=== PATIENT | male | born 1975 | race Caucasian/White ===

== ENCOUNTER → 2018-12-23 | Outpatient (REF) | payer BC, OTHER ==
[2018-12-23 12:24] LABS: HEMATOCRIT 47.7 % (42.0-52.0); HEMOGLOBIN 15.8 g/dl (13.5-17.5); MEAN CORPUSCULAR HGB CONC 33.1 g/dl (32.0-36.5); MEAN CORPUSCULAR VOLUME 87.7 fl (80.0-96.0); PLATELET COUNT, AUTOMATED 301 10^3/uL (150-450); RED BLOOD COUNT 5.44 10^6/uL (4.30-6.10)
[2018-12-23 12:33] LABS: ALBUMIN 4.3 GM/DL (3.2-5.2); ALT/SGPT 38 U/L (12-78); BILIRUBIN,TOTAL 0.6 MG/DL (0.2-1.0); BLOOD UREA NITROGEN 16 MG/DL (7-18); CARBON DIOXIDE LEVEL 28 MEQ/L (21-32); CHLORIDE LEVEL 99 MEQ/L (98-107); CHOLESTEROL LEVEL 227 MG/DL (<200); CHOLESTEROL RISK RATIO 3.783 (<5); CREATININE FOR GFR 1.08 MG/DL (0.70-1.30); GLOMERULAR FILTRATION RATE > 60.0 (>60); GLUCOSE, FASTING 240 MG/DL (70-100); HDL CHOLESTEROL 60 MG/DL (>40); LDL CHOLESTEROL 116 MG/DL (<100); MAGNESIUM LEVEL 2.1 MG/DL (1.8-2.4); NON-HDL-C 167 MG/DL; POTASSIUM SERUM 4.4 MEQ/L (3.5-5.1); SODIUM LEVEL 136 MEQ/L (136-145); TOTAL PROTEIN 7.8 GM/DL (6.4-8.2); TRIGLYCERIDES LEVEL 253 MG/DL (<150)
[2018-12-23 14:03] LABS: HEMOGLOBIN A1c 8.5 %
== END ==
LOC: M LABDRAW1 09:06
PROVIDERS: ATTEND Internal Medicine
DX: Z00.00 Encounter for general adult medical examination without abnormal findings (principal); I10 Essential (primary) hypertension; E11.9 Type 2 diabetes mellitus without complications; E78.00 Pure hypercholesterolemia, unspecified

== ENCOUNTER 2019-01-26 08:49 | Emergency (ER) | payer OTHER ==
[~2019-01-26] VITALS: Ht 182.9 cm; Wt 117.6 kg
[2019-01-26] MEDS ORDERED: METF750T (08:59)
[2019-01-26] MEDS ORDERED: CHLO125TA (08:59)
[2019-01-26] MEDS ORDERED: LISI10TA4 (08:59)
[2019-01-26] MEDS ORDERED: TRUL10IN (08:59)
--- NOTE | 2019-01-26 09:35 | REP ---
CT Head without contrast HISTORY: Infarction COMPARISON: 04/04/2007 There is no intraparenchymal hemorrhage, acute infarct, mass or midline shift. The ventricular system is normal in appearance. There is no extra cerebral collection. There is no fracture. The visualized sinuses are clear. IMPRESSION: There is no intracranial lesion. Electronically Signed by Dash Colon MD 01/26/2019 09:28 A
[2019-01-26] MEDS ORDERED: MECLIZINE 25 MG TABLET PO ONE (09:45)
[2019-01-26 09:47] LABS: BASO # 0.1 10^3/uL (0.0-0.2); BASO % 0.8 % (0.0-1.0); EOS # 0.1 10^3/uL (0.0-0.50); HEMATOCRIT 44.2 % (42.0-52.0); LYMPH # 1.6 10^3/uL (1.5-4.5); LYMPH % 20.9 % (24.0-44.0); MEAN CORPUSCULAR HEMOGLOBIN 29.2 pg (27.0-33.0); MEAN CORPUSCULAR HGB CONC 33.9 g/dl (32.0-36.5); MONO # 0.6 10^3/uL (0.0-0.8); MONO % 8.2 % (0.0-5.0); NEUTROPHILS # 5.2 10^3/uL (1.8-7.7); NEUTROPHILS % 67.2 % (36.0-66.0); PLATELET COUNT, AUTOMATED 317 10^3/uL (150-450); RED BLOOD COUNT 5.14 10^6/uL (4.30-6.10); WHITE BLOOD COUNT 7.8 10^3/uL (4.0-10.0)
--- NOTE | 2019-01-26 09:49 | REP ---
Portable chest x-ray: Single view. History: CVA. Comparison study: December 13, 2005. Findings: EKG monitoring electrodes are seen. The lungs are well inflated and remain clear. Pleural angles are sharp. Heart size is normal. Pulmonary vasculature is not increased. No significant bony abnormality is seen. Impression: No active disease. Electronically Signed by Giovanni Chase MD 01/26/2019 11:31 A
[2019-01-26 09:58] LABS: INR 0.96; PROTHROMBIN TIME 12.9 SECONDS (12.1-14.4)
[2019-01-26 09:59] LABS: PARTIAL THROMBOPLASTIN TIME 32.6 SECONDS (25.4-37.6)
[2019-01-26 10:08] LABS: BLOOD UREA NITROGEN 17 MG/DL (7-18); CARBON DIOXIDE LEVEL 28 MEQ/L (21-32); CHLORIDE LEVEL 101 MEQ/L (98-107); CK-MB VALUE MASS < 1.0 NG/ML (<3.6); CPK CREATINE PHOSPHOKINASE 121 U/L (39-308); GLOMERULAR FILTRATION RATE > 60.0 (>60); GLUCOSE, FASTING 183 MG/DL (70-100); MB/CK RELATIVE INDEX 0.83 (< OR =4); POTASSIUM SERUM 3.5 MEQ/L (3.5-5.1); SODIUM LEVEL 137 MEQ/L (136-145); TROPONIN I < 0.02 NG/ML (< 0.10)
[2019-01-26 13:45] VITALS: BP 122/67
[2019-01-26] MEDS ORDERED: MECL-68 PO (13:45)
--- NOTE | 2019-01-26 19:54 | ECGEPIP ---
Stationary ECG Study [facility] - ED Test Date: 2019-01-26 Pat Name: JULIO CESAR STEPHENSON Department: Room: - Gender: M [employer] Mechanic: : 1975 Requested By: Maria Ines Hartman Order Number: [id number] Reading MD: Karl Odonnell Measurements Intervals [place] Rate: 101 P: 43 [place]: 126 QRS: -14 QRSD: 111 T: 1 QT: 367 QTc: 477 Interpretive Statements SINUS TACHYCARDIA LOW QRS VOLTAGE IN PRECORDIAL LEADS NSTTW ABNORMALITIES INCOMPLETE RIGHT BUNDLE BRANCH BLOCK SIMILAR TO 08/04/12 Electronically Signed On 01-26-2019 19:53:30 EDT by Karl Odonnell
--- NOTE | 2019-01-27 07:30 | REP ---
MR Brain without contrast HISTORY: Infarction COMPARISON : CT 01/26/2019 There are no areas of abnormal signal intensity in the brain. There is no intraparenchymal hemorrhage, infarct, mass or midline shift. The ventricular system is normal in appearance. There is no extra cerebral collection. The sinuses are clear. IMPRESSION: There is no intracranial lesion. Electronically Signed by Dash Colon MD 01/26/2019 12:51 P
== END 2019-01-26 14:00 | disposition home or self-care (01) ==
LOC: M ED 08:49
DX: H81.01 Meniere's disease, right ear (principal); H81.49 Vertigo of central origin, unspecified ear; R00.0 Tachycardia, unspecified; I45.19 Other right bundle-branch block; E11.9 Type 2 diabetes mellitus without complications; I10 Essential (primary) hypertension; Z79.84 Long term (current) use of oral hypoglycemic drugs; Z79.899 Other long term (current) drug therapy

== ENCOUNTER → 2019-11-11 | Outpatient (REF) | payer OTHER ==
[~2019-11-11] MED LIST: CHLO125TA; LISI10TA4; MECL1TAB31 PO; METF750T36; TRUL10IN
[2019-11-11 13:10] LABS: ALBUMIN 4.4 GM/DL (3.2-5.2); ALT/SGPT 37 U/L (12-78); BILIRUBIN,TOTAL 0.5 MG/DL (0.2-1.0); BLOOD UREA NITROGEN 22 MG/DL (7-18); CALCIUM LEVEL 9.1 MG/DL (8.5-10.1); CARBON DIOXIDE LEVEL 26 MEQ/L (21-32); CHLORIDE LEVEL 103 MEQ/L (98-107); CHOLESTEROL LEVEL 208 MG/DL (<200); CHOLESTEROL RISK RATIO 4.521 (<5); CREATININE FOR GFR 1.15 MG/DL (0.70-1.30); GLOMERULAR FILTRATION RATE > 60.0 (>60); GLUCOSE, FASTING 125 MG/DL (70-100); HDL CHOLESTEROL 46 MG/DL (>40); LDL CHOLESTEROL 85 MG/DL (<100); MAGNESIUM LEVEL 1.9 MG/DL (1.8-2.4); NON-HDL-C 162 MG/DL; SODIUM LEVEL 139 MEQ/L (136-145); TOTAL PROTEIN 7.6 GM/DL (6.4-8.2); TRIGLYCERIDES LEVEL 385 MG/DL (<150)
[2019-11-11 13:34] LABS: MALB URINE SIEMENS 6.8 MG/L; MAU/CREAT RATIO 6.4 MCG/MG (0.0-30.0)
[2019-11-11 13:41] LABS: HEMOGLOBIN A1c 6.3 %
== END ==
LOC: M LABDRAW1 11:56
PROVIDERS: ATTEND Internal Medicine
DX: I10 Essential (primary) hypertension (principal); E78.00 Pure hypercholesterolemia, unspecified; E11.9 Type 2 diabetes mellitus without complications

== ENCOUNTER → 2020-05-23 | Outpatient (REF) | payer BC ==
[2020-05-23 13:11] LABS: HEMOGLOBIN 16.1 g/dl (13.5-17.5); MEAN CORPUSCULAR HEMOGLOBIN 29.2 pg (27.0-33.0); MEAN CORPUSCULAR HGB CONC 32.9 g/dl (32.0-36.5); MEAN CORPUSCULAR VOLUME 88.8 fl (80.0-96.0); PLATELET COUNT, AUTOMATED 265 10^3/uL (150-450); RED BLOOD COUNT 5.52 10^6/uL (4.30-6.10); WHITE BLOOD COUNT 6.7 10^3/uL (4.0-10.0)
[2020-05-23 13:23] LABS: ALBUMIN 4.3 GM/DL (3.2-5.2); ALT/SGPT 34 U/L (12-78); BILIRUBIN,TOTAL 0.7 MG/DL (0.2-1.0); BLOOD UREA NITROGEN 17 MG/DL (7-18); CALCIUM LEVEL 9.1 MG/DL (8.5-10.1); CARBON DIOXIDE LEVEL 26 MEQ/L (21-32); CHLORIDE LEVEL 105 MEQ/L (98-107); CHOLESTEROL LEVEL 136 MG/DL (<200); CHOLESTEROL RISK RATIO 2.956 (<5); CREATININE FOR GFR 1.09 MG/DL (0.70-1.30); GLOMERULAR FILTRATION RATE > 60.0 (>60); GLUCOSE, FASTING 152 MG/DL (70-100); HDL CHOLESTEROL 46 MG/DL (>40); LDL CHOLESTEROL 45 MG/DL (<100); MAGNESIUM LEVEL 2.1 MG/DL (1.8-2.4); NON-HDL-C 90 MG/DL; POTASSIUM SERUM 4.3 MEQ/L (3.5-5.1); SODIUM LEVEL 139 MEQ/L (136-145); TOTAL PROTEIN 7.6 GM/DL (6.4-8.2); TRIGLYCERIDES LEVEL 227 MG/DL (<150)
[2020-05-23 13:24] LABS: HEMOGLOBIN A1c 6.3 %
== END ==
LOC: M SFHCPLAZ 08:12
PROVIDERS: ATTEND Internal Medicine
DX: H81.02 Meniere's disease, left ear (principal); I10 Essential (primary) hypertension; E11.9 Type 2 diabetes mellitus without complications; E78.00 Pure hypercholesterolemia, unspecified

== ENCOUNTER → 2020-08-16 | Outpatient (REF) | LOC: M LAB 11:45 | PROVIDERS: ATTEND Nurse Practitioner Adult Health | DX: Z02.89 Encounter for other administrative examinations (principal) ==

== ENCOUNTER → 2020-10-25 | Outpatient (REF) | payer SELFPAY ==
[~2020-10-25] MED LIST changes: +ALCOPAD25 TOP; +AMLO2.5T3 PO; +ATOR1TAB21 PO; +AUGM875T28 PO; +CIAL5TAB PO; +INSU1MIS20 SC; +INSUDET SC; +LISI10TA22; +LISI10TA22 PO; -LISI10TA4; +MECL-86 PO; +METF750T36 PO; +PRED10TA2 PO; +TRUL10IN SC
== END ==
LOC: M LABSMTC 11:19 → EDSTATUS 12:00
PROVIDERS: ATTEND Pediatrics
DX: Z20.828 Contact with and (suspected) exposure to other viral communicable diseases (principal)

== ENCOUNTER 2020-11-01 05:34 | Inpatient (IN) | payer BC ==
[~2020-11-01] VITALS: Ht 182.9 cm; Wt 118.0 kg
[~2020-11-01 05:34] MED LIST changes: -ALCOPAD25 TOP; -AMLO2.5T3 PO; -ATOR1TAB21 PO; -AUGM875T28 PO; -CIAL5TAB PO; -INSU1MIS20 SC; -INSUDET SC; -LISI10TA22; -LISI10TA22 PO; +LISI10TA4; -MECL-86 PO; -METF750T36 PO; -PRED10TA2 PO; -TRUL10IN SC
[2020-11-01] MEDS ORDERED: ONDANSETRON 4MG/2ML VIAL IV ONE (06:30)
[2020-11-01] MEDS ORDERED: MECLIZINE 25 MG TABLET PO ONE (06:30)
[2020-11-01] MEDS ORDERED: ACETAMINOPHEN 500 MG TAB PO ONE (07:00)
[2020-11-01] MEDS ORDERED: LISI10TA4 PO (07:00)
[2020-11-01] MEDS ORDERED: CIAL5TAB PO (07:00)
[2020-11-01] MEDS ORDERED: METF750T36 PO (07:00)
[2020-11-01] MEDS ORDERED: ATOR1TAB21 PO (07:00)
[2020-11-01] MEDS ORDERED: TRUL10IN SC (07:00)
[2020-11-01 07:16] LABS: BASO % 0.2 % (0.0-1.0); HEMATOCRIT 43.5 % (42.0-52.0); HEMOGLOBIN 14.7 g/dl (13.5-17.5); LYMPH # 0.6 10^3/uL (1.5-5.0); LYMPH % 5.4 % (24.0-44.0); MEAN CORPUSCULAR HEMOGLOBIN 28.3 pg (27.0-33.0); MEAN CORPUSCULAR HGB CONC 33.8 g/dl (32.0-36.5); MEAN CORPUSCULAR VOLUME 83.8 fl (80.0-96.0); MONO # 0.4 10^3/uL (0.0-0.8); MONO % 3.6 % (0.0-5.0); NEUTROPHILS # 9.1 10^3/uL (1.5-8.5); NEUTROPHILS % 89.7 % (36.0-66.0); PLATELET COUNT, AUTOMATED 286 10^3/uL (150-450); RED BLOOD COUNT 5.19 10^6/uL (4.30-6.10); VENOUS BASE EXCESS -0.9 (-2.0-2.0); VENOUS HCO3 23.5 MEQ/L (23.0-27.0); VENOUS O2 SATURATION 57.6 % (60.0-80.0); VENOUS PARTIAL PRESSURE CO2 38.6 mmHg (38.0-50.0); VENOUS PARTIAL PRESSURE O2 28.3 mmHg (30.0-50.0); VENOUS PH 7.403 UNITS (7.330-7.430); VENOUS STANDARD HCO3 22.7 MEQ/L; VENOUS TOTAL CO2 24.7 MEQ/L (24.0-28.0); WHITE BLOOD COUNT 10.1 10^3/uL (4.0-10.0)
[2020-11-01 07:31] LABS: INR 1.04; PROTHROMBIN TIME 13.8 SECONDS (12.5-14.3)
[2020-11-01 07:34] LABS: D-DIMER QUANT 1421.33 ng/ml (<500)
[2020-11-01 07:48] LABS: ALBUMIN 3.2 GM/DL (3.2-5.2); ALT/SGPT 53 U/L (12-78); BILIRUBIN,DIRECT 0.4 MG/DL (0.0-0.2); BLOOD UREA NITROGEN 13 MG/DL (7-18); CALCIUM LEVEL 8.3 MG/DL (8.5-10.1); CARBON DIOXIDE LEVEL 24 MEQ/L (21-32); CHLORIDE LEVEL 95 MEQ/L (98-107); CK-MB VALUE MASS < 1.0 NG/ML (<3.6); CPK CREATINE PHOSPHOKINASE 469 U/L (39-308); CREATININE FOR GFR 1.22 MG/DL (0.70-1.30); FERRITIN 1526 NG/ML (26-388); GLOMERULAR FILTRATION RATE > 60.0 (>60); GLUCOSE, FASTING 295 MG/DL (70-100); LDH LACTATE DEHYDROGENASE 497 U/L (87-241); MB/CK RELATIVE INDEX 0.21 (< OR =4); NT-PRO BNP 69 PG/ML (<125); POTASSIUM SERUM 3.5 MEQ/L (3.5-5.1); SODIUM LEVEL 130 MEQ/L (136-145); TOTAL PROTEIN 7.5 GM/DL (6.4-8.2); TROPONIN I < 0.02 NG/ML (< 0.10)
[2020-11-01] MEDS ORDERED: ISOVUE-370 76% 100ML VIAL As Ordered ONE (08:23)
--- NOTE | 2020-11-01 08:36 | REP ---
INDICATION: DYSPNEA/COUGH COMPARISON: 01/26/2019 TECHNIQUE: Portable AP view of the chest FINDINGS: Evaluation limited by portable technique, underpenetration and poor inspiratory effort. The cardiac silhouette is grossly normal/stable. The lung vega demonstrate new areas opacity in the right midlung zone and possible opacity in the retrocardiac left lower lobe. No obvious effusion. No pneumothorax. Skeletal structures intact. IMPRESSION: Opacities suggesting multifocal pneumonia. <Electronically signed by Esteban Cueva > 11/01/20 0825
--- NOTE | 2020-11-01 08:57 | REP ---
INDICATION: sob, lea, +covid, elevated dimer, r/o PE COMPARISON: None. TECHNIQUE: Axial contrast enhanced images from the thoracic inlet to the upper abdomen using pulmonary embolus technique with multiplanar re-formations. 100 ml Isovue 370 intravenous contrast material administered without complication. This CT examination was performed using the following dose reduction techniques: Automated exposure control, adjustment of mA and/or kv according to the patient's size, and use of iterative reconstruction technique. FINDINGS: Satisfactory enhancement of the pulmonary vasculature is achieved and no filling defects are identified to suggest pulmonary embolus. Diffuse bilateral primarily peripheral and lower lobe consolidations consistent with multifocal pneumonia and COVID-19 pulmonary disease. No effusion. No pneumothorax. Tracheobronchial tree is patent. Mediastinum demonstrates mild reactive adenopathy. Thoracic aorta is without aneurysm or dissection. Heart and pericardium are normal. Thyroid gland is normal. Surrounding musculoskeletal structures are intact. IMPRESSION: 1. Significant bilateral pulmonary consolidations consistent with COVID-19 pulmonary disease 2. No evidence for pulmonary embolus. <Electronically signed by Esteban Cueva > 11/01/20 [id number]
--- NOTE | 2020-11-01 08:59 | REP ---
INDICATION: sob, lea, +covid, elevated dimer, r/o PE COMPARISON: None TECHNIQUE: Axial noncontrast images from the lung bases to the pubic symphysis with coronal and sagittal reformations. This CT examination was performed using the following dose reduction techniques: Automated exposure control, adjustment of mA and/or kv according to the patient's size, and use of iterative reconstruction technique. FINDINGS: Diffuse fatty infiltration to the liver noted along with mild hepatosplenomegaly. No focal hepatic or splenic lesions are identified. Gallbladder, pancreas, bilateral adrenal glands and kidneys are normal. The enteric system is without obstruction or acute inflammatory process. Normal terminal ileum and appendix are identified in the right lower quadrant. Pelvis demonstrates normal bladder and age-appropriate prostate/seminal vesicles. Small fat containing inguinal hernias noted. No ascites. No free air. No adenopathy. Abdominal aorta and vasculature appear normal. Musculoskeletal structures are intact. IMPRESSION: 1. Hepatosplenomegaly along with hepatosteatosis. No focal hepatic or splenic lesions identified. 2. No acute abdominopelvic pathology appreciated. <Electronically signed by Esteban Cueva > 11/01/20 [id number]
[2020-11-01] MEDS ORDERED: GLUCOSE 4GM CHEW TABLET PO PRN (09:45)
[2020-11-01] MEDS ORDERED: ACETAMINOPHEN TAB 650MG DOSE (2X325MG) PO PRN (09:45)
[2020-11-01] MEDS ORDERED: DEXTROSE 50% 50 ML SYRINGE IV PRN (09:45)
[2020-11-01] MEDS ORDERED: GLUCAGON INJ 1MG VIAL SC PRN (09:45)
[2020-11-01] MEDS ORDERED: MECLIZINE 25 MG TABLET PO PRN (09:45)
[2020-11-01] MEDS: LEVEMIR (INSULIN DETEMIR) 1 UNITS/0.01ML SC SCH ×2 (10:00→20:26)
[2020-11-01 11:47] LABS: THYROID STIMULATING HORMONE 1.92 uIU/ML (0.358-3.740)
[2020-11-01 11:49] LABS: CORTISOL BASELINE 31.2 UG/DL (4.3-22.4); TRIGLYCERIDES LEVEL 117 MG/DL (<150)
[2020-11-01 12:00] VITALS: BP 132/63
[2020-11-01] MEDS: HumaLOG INSULIN (NovoLOG) PER UNIT SC SCH ×3 (12:00→20:38)
[2020-11-01 12:05] LABS: HEPATITIS B SURFACE ANTIGEN NEGATIVE (NEGATIVE)
[2020-11-01 12:28] VITALS: O2SAT 94
[2020-11-01 12:33] LABS: HIV 1&2 SCREEN CENTAUR NEGATIVE (NEGATIVE)
[2020-11-01] MEDS: ENOXAPARIN 60MG/0.6ML SYRINGE (J1650 PER 10MG) SC SCH ×2 (14:32→20:26)
[2020-11-01] MEDS: dexameTHASONE 4 MG/ML 1ML VIAL (J1100 PER 1MG) IV SCH (14:32)
[2020-11-01] MEDS: ATORVASTATIN 20 MG TAB PO SCH (14:32)
[2020-11-01 16:00] VITALS: BP 143/73
--- NOTE | 2020-11-01 16:00 | HPEPDOC ---
[facility] Medical History & Physical Date of Admission Nov 01, 2020 Date of Service: Nov 01, 2020 History and Physical Chief complaint: Presented to the hospital with complaints of worsening shortness of breath with exertion History of present illness: Patient is a 45-year-old male who presented to the emergency room with worsening shortness of breath on exertion. 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 He noted he was expressing symptoms since 10/22 and tested positive for COVID19 on 10/25. Patient denies any significant cough, reports a very mild nonproductive cough. Denies any chest pain or palpitations. Patient reports feeling body aches diffusely and chills while at home. Patient did note a fever several days ago of 101F. Patient denies any abdominal pain, has experience some diarrhea this morning patient awoke with nausea and had a single episode of vomiting that he attributed to his vertigo episode. Patient reports a decrease in his appetite and has experience a weight loss of approximately 18 pounds over the duration of 1 week. Past Medical History: Mnires disease Hypertension DLP NIDDM2 Past Surgical History: Polyps removed from his nose Allergies: See below Medications: See below Family History: - Mother with history of breast cancer, - Father alive Social History: - Denies the use of alcohol, tobacco or illicit drugs - Denies recent travel or sick contacts - Lives with - Occupation; patient works at the hospital as a sitter Review of Systems: 10 point review of systems complete, all negative otherwise stated in HPI Physical exam: - Vitals: BP [146/72], HR [102], RR [20], Sat [94%NC4L], Temp [98.0F] - General: Lying in bed, Speaking in full sentences, AAOx3 - HEENT: NC, AT, PERRLA, EOMI - CVS: Mild tachycardia, +S1S2 - Lungs: Fair air entry bilaterally, No appreciable wheezing / rales / rhonchi - Abdomen: Soft, Non-distended, Non-tender - Extremities: No lower extremity edema, No calf tenderness - Neuro: No focal motor or sensory deficit - Skin: No visible rashes Labs: See below Imaging: CXR 11/01: Opacities suggesting multifocal pneumonia. CTA Chest 11/01: 1. Significant bilateral pulmonary consolidations consistent with COVID-19 pulmonary disease 2. No evidence for pulmonary embolus. CT abdomen / pelvis w/ IV contrast 11/01: 1. Hepatosplenomegaly along with hepatosteatosis. No focal hepatic or splenic lesions identified. 2. No acute abdominopelvic pathology appreciated. EKG: See below Assessment and Plan: Acute hypoxic respiratory failure - likely 2/2 COVID pneumonia - Presented to the ER with complaints of SOB and non-productive cough - Currently patient is requiring 4 L of nasal cannula oxygen - Inflammatory markers are elevated - Imaging reviewed - Will start patient on Dexamethasone (Day #1) - Will start incentive spirometry / acapella Leukocytosis - Patient remains hemodynamically stable and afebrile - Pro-calcitonin noted; will follow trend - No lactic acidosis - Imaging noted possibility of pneumonia and COVID19 - Will start Zosyn (Day #1) Hyponatremia - likely 2/2 hypotonic euvolemic etiology - possibly 2/2 SIADH - Will check urine / serum osmolality, urine electrolytes, thyroid function, cortisol - Will hold Lisinopril for now - Will hold IV fluids at this time Mild elevation of AST - Imaging noted above with hepatosplenomegaly along with hepatosteatosis - Will continue to follow trend Mnires disease - Patient reported an episode of Vertigo this morning - Resolved with Meclizine in the ER - Will c/w Meclizine PRN Hypertension - BP well controlled - Will resume Lisinopril within 24 hours DLP - c/w Atorvastatin NIDDM2 - Will start ISS and low dose Levemir BID DVT prophylaxis - Will start weight based Lovenox Vital Signs Vital Signs Date Time Temp Pulse Resp B/P (MAP) Pulse Ox O2 Delivery O2 Flow Rate FiO2 11/01/20 12:28 94 Nasal Cannula 4.0 11/01/20 12:00 98.0 101 20 132/63 (86) Laboratory Data Labs 24H Laboratory Tests 2 11/01/20 06:44: Immature Granulocyte % (Auto) 1.1, Neutrophils (%) (Auto) 89.7H, Lymphocytes (%) (Auto) 5.4L, Monocytes (%) (Auto) 3.6, Eosinophils (%) (Auto) 0.0, Basophils (%) (Auto) 0.2, Neutrophils # (Auto) 9.1H, Lymphocytes # (Auto) 0.6L, Monocytes # (Auto) 0.4, Eosinophils # (Auto) 0.0, Basophils # (Auto) 0.0, Nucleated Red Blood Cells % (auto) 0.0, Prothrombin Time 13.8, Prothromb Time International Ratio 1.04, D-Dimer, Quantitative 1421.33H, Blood Gas Bicarbonate Standard 22.7, Venous Blood pH 7.403, Venous Blood Partial Pressure CO2 38.6, Venous Blood Partial Pressure O2 28.3L, Venous Blood Total Carbon Dioxide 24.7, Venous Blood HCO3 23.5, Venous Blood Oxygen Saturation 57.6L, Venous Blood Base Excess -0.9, Anion Gap 11, Glomerular Filtration Rate > 60.0, Lactic Acid Level 1.8, Calcium Level 8.3L, Ferritin 1526H, Total Bilirubin 1.0, Direct Bilirubin 0.4H, Aspartate Amino Transf (AST/SGOT) 66H, Alanine Aminotransferase (ALT/SGPT) 53, Alkaline Phosphatase 94, Lactate Dehydrogenase 497H, Total Creatine Kinase 469H, Creatine Kinase MB < 1.0, Creatine Kinase MB Relative Index 0.21, Troponin I < 0.02, ZP-Pox-Z-Type Natriuretic Peptide 69, Total Protein 7.5, Albumin 3.2, Albumin/Globulin Ratio 0.7, Procalcitonin 1.05 11/01/20 10:47: Fibrinogen 1130H, Osmolality 283, C-Reactive Protein, Quantitative 22.60H, Triglycerides Level 117, Thyroid Stimulating Hormone (TSH) 1.920, Cortisol Baseline 31.2H, Hepatitis B Surface Antigen NEGATIVE, HIV Antigen/Antibody Combo Qual NEGATIVE CBC/BMP Laboratory Tests 11/01/20 06:44 Microbiology Microbiology 11/01/20 Blood Culture, Received Pending 11/01/20 Blood Culture, Received Pending Home Medications Scheduled Atorvastatin Calcium (Atorvastatin Calcium) 20 Mg Tablet, 20 MG PO DAILY Dulaglutide (Trulicity) 0.75 Mg/0.5 Ml Pen.injctr, 0.75 MG SC QWEEK WEDNESDAYS Lisinopril (Lisinopril) 10 Mg Tablet, 10 MG PO DAILY Metformin HCl (Metformin HCl ER) 750 Mg Tab.er.24h, 1,500 MG PO QPM TAKES AROUND DINNERTIME Scheduled PRN Tadalafil (Cialis) 5 Mg Tablet, 5 MG PO DAILY PRN for DIZZINESS FOR MENIERE'S DISEASE Allergies Coded Allergies: No Known Allergies (Unverified , 01/26/19) RENETTA PRETTY MD Nov 01, 2020 16:00
[2020-11-01] MEDS: PIPERACILLIN/TAZOBACTAM SOD 3.375 GM in D5W MINI-BAG PLUS 50 ML IV SCH ×2 (17:30→23:53)
[2020-11-01 20:00] VITALS: BP 119/63; O2SAT 91
[2020-11-01] MEDS: NS 1,000 ML IV SCH (20:26)
[2020-11-02] VITALS (7 sets, daily range): BP systolic 111–130; BP diastolic 57–76; O2SAT 92–94
[2020-11-02] MEDS: PIPERACILLIN/TAZOBACTAM SOD 3.375 GM in D5W MINI-BAG PLUS 50 ML IV SCH ×4 (04:35→23:38)
[2020-11-02 07:06] LABS: HEMATOCRIT 40.7 % (42.0-52.0); HEMOGLOBIN 13.6 g/dl (13.5-17.5); MEAN CORPUSCULAR HEMOGLOBIN 28.2 pg (27.0-33.0); MEAN CORPUSCULAR HGB CONC 33.4 g/dl (32.0-36.5); MEAN CORPUSCULAR VOLUME 84.4 fl (80.0-96.0); PLATELET COUNT, AUTOMATED 339 10^3/uL (150-450); RED BLOOD COUNT 4.82 10^6/uL (4.30-6.10); WHITE BLOOD COUNT 7.6 10^3/uL (4.0-10.0)
[2020-11-02 07:31] LABS: INR 0.97; PROTHROMBIN TIME 13.1 SECONDS (12.5-14.3)
[2020-11-02 07:32] LABS: PARTIAL THROMBOPLASTIN TIME 38.8 SECONDS (24.2-38.5)
[2020-11-02 07:45] LABS: ALBUMIN 2.8 GM/DL (3.2-5.2); ALT/SGPT 53 U/L (12-78); BILIRUBIN,DIRECT 0.3 MG/DL (0.0-0.2); BILIRUBIN,TOTAL 0.7 MG/DL (0.2-1.0); BLOOD UREA NITROGEN 17 MG/DL (7-18); CARBON DIOXIDE LEVEL 24 MEQ/L (21-32); CHLORIDE LEVEL 99 MEQ/L (98-107); CREATININE FOR GFR 1.16 MG/DL (0.70-1.30); FERRITIN 1549 NG/ML (26-388); GLOMERULAR FILTRATION RATE > 60.0 (>60); GLUCOSE, FASTING 330 MG/DL (70-100); MAGNESIUM LEVEL 2.6 MG/DL (1.8-2.4); POTASSIUM SERUM 3.6 MEQ/L (3.5-5.1); SODIUM LEVEL 132 MEQ/L (136-145); TOTAL PROTEIN 6.6 GM/DL (6.4-8.2)
[2020-11-02 08:01] LABS: ATYPICAL LYMPH 2 % (0-5); LYMPHOCYTES 9 % (16-44); MONOCYTES 8 % (0-5); NEUTROPHILS 81 % (28-66); PLATELET ESTIMATE NORMAL (NORMAL)
[2020-11-02] MEDS ORDERED: lisinopriL 10 MG TAB PO SCH (09:00)
[2020-11-02] MEDS: NS 1,000 ML IV SCH (10:09)
[2020-11-02] MEDS: dexameTHASONE 4 MG/ML 1ML VIAL (J1100 PER 1MG) IV SCH (10:10)
[2020-11-02] MEDS: ENOXAPARIN 60MG/0.6ML SYRINGE (J1650 PER 10MG) SC SCH ×2 (10:10→21:26)
[2020-11-02] MEDS: HumaLOG INSULIN (NovoLOG) PER UNIT SC SCH ×4 (10:10→21:28)
[2020-11-02] MEDS: ATORVASTATIN 20 MG TAB PO SCH (10:11)
[2020-11-02] MEDS: LEVEMIR (INSULIN DETEMIR) 1 UNITS/0.01ML SC SCH ×2 (10:11→21:27)
--- NOTE | 2020-11-02 13:27 | ECGEPIP ---
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
--- NOTE | 2020-11-02 13:59 | IPNPDOC ---
Text Note Date of Service The patient was seen on 11/02/20. NOTE Subjective: Patient is a 45-year-old male who presented to the ER with worsening shortness of breath on exertion. 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 He noted he was expressing symptoms since 10/22 and tested positive for COVID19 on 10/25. Patient was admitted to the hospital service for further evaluation and treatment. Patient was seen and examined at the bedside. Objective: Vitals (See below) General: Lying in bed, appears to be comfortable, AAOx3 HEENT: NC, AT CVS: +S1S2 Lungs: Fair air entry b/l, no appreciable wheezing, rhonchi or rales Abdomen: Soft, ND, NT Extremities: No evidence of edema, - Calf tenderness Imaging: CXR 11/01: Opacities suggesting multifocal pneumonia. CTA Chest 11/01: 1. Significant bilateral pulmonary consolidations consistent with COVID-19 pulmonary disease 2. No evidence for pulmonary embolus. CT abdomen / pelvis w/ IV contrast 11/01: 1. Hepatosplenomegaly along with hepatosteatosis. No focal hepatic or splenic lesions identified. 2. No acute abdominopelvic pathology appreciated. Assessment and plan: Acute hypoxic respiratory failure - likely 2/2 COVID pneumonia and possible superimposed bacterial pneumonia - Presented to the ER with complaints of SOB and non-productive cough - Currently patient is requiring 4 L of nasal cannula oxygen - Inflammatory markers are elevated - PCT elevated - Imaging reviewed - c/w Dexamethasone (Day #2) - c/w Zosyn (Day #2) - c/w incentive spirometry / acapella Leukocytosis - Patient remains hemodynamically stable and afebrile - Pro-calcitonin noted; will follow trend - No lactic acidosis - Imaging noted possibility of pneumonia and COVID19 - See above Hyponatremia - likely 2/2 hypotonic hypovolemic etiology 2/2 diarrhea; possibly 2/2 hypotonic euvolemic etiology - possibly 2/2 SIADH - improving with fluids - Thyroid function / Cortisol noted - Urine osmolality / urine electrolytes - Will continue to hold Lisinopril - c/w gentle IV fluids at this time Mild elevation of AST - Imaging noted above with hepatosplenomegaly along with hepatosteatosis - Improving / Stable Mnires disease - Reported an episode of Vertigo on 11/01 AM - No further episodes since arrival to ER - c/w Meclizine PRN Hypertension - BP well controlled - Will resume Lisinopril within 24-48 hours DLP - c/w Atorvastatin NIDDM2 - c/w ISS - Will increase dose Levemir BID DVT prophylaxis - c/w weight based Lovenox VS,Fishbone, I+O VS, Fishbone, I+O Laboratory Tests 11/02/20 06:37 Vital Signs Date Time Temp Pulse Resp B/P (MAP) Pulse Ox O2 Delivery O2 Flow Rate FiO2 11/02/20 12:00 96.9 98 20 114/59 (77) 93 Nasal Cannula 3.0 I&O- Last 24 Hours up to 6 AM 11/02/20 06:00 Intake Total 1260 ml Output Total 500 ml Balance 760 ml RENETTA PRETTY MD Nov 02, 2020 13:59
[2020-11-02 14:40] LABS: APPEARANCE, URINE CLEAR (CLEAR); BACTERIA, URINE AUTO NEGATIVE (NEGATIVE); BILIRUBIN, URINE AUTO NEGATIVE (NEGATIVE); BLOOD, URINE BLOOD 2+ (NEGATIVE); COLOR, URINE YELLOW (YELLOW); GLUCOSE, URINE (UA) AUTO 3+ mg/dL (NEGATIVE); KETONE, URINE AUTO TRACE mg/dL (NEGATIVE); LEUKOCYTE ESTERASE, URINE AUTO NEGATIVE (NEGATIVE); NITRITE, URINE AUTO NEGATIVE (NEGATIVE); PROTEIN, URINE AUTO 1+ mg/dL (NEGATIVE); RBC, URINE AUTO 0 /HPF (0-3); SPECIFIC GRAVITY URINE AUTO 1.017 (1.002-1.035); SQUAMOUS EPITHELIAL CELL UR AU 0 /HPF (0-6); UROBILINOGEN, URINE AUTO 0.2 mg/dL (0.0-2.0); WBC, URINE AUTO 2 /HPF (0-3)
[2020-11-02 14:57] LABS: CREATININE,RANDOM URINE 80.6 MG/DL
[2020-11-03] VITALS (7 sets, daily range): BP systolic 125–137; BP diastolic 71–85; O2SAT 91
[2020-11-03] MEDS: PIPERACILLIN/TAZOBACTAM SOD 3.375 GM in D5W MINI-BAG PLUS 50 ML IV SCH ×4 (04:54→23:35)
[2020-11-03 08:08] LABS: HEMATOCRIT 40.8 % (42.0-52.0); HEMOGLOBIN 13.2 g/dl (13.5-17.5); MEAN CORPUSCULAR HEMOGLOBIN 27.2 pg (27.0-33.0); MEAN CORPUSCULAR HGB CONC 32.4 g/dl (32.0-36.5); MEAN CORPUSCULAR VOLUME 84.1 fl (80.0-96.0); PLATELET COUNT, AUTOMATED 410 10^3/uL (150-450); RED BLOOD COUNT 4.85 10^6/uL (4.30-6.10); WHITE BLOOD COUNT 7.1 10^3/uL (4.0-10.0)
[2020-11-03 08:21] LABS: INR 0.99; PROTHROMBIN TIME 13.3 SECONDS (12.5-14.3)
[2020-11-03 08:22] LABS: PARTIAL THROMBOPLASTIN TIME 37.7 SECONDS (24.2-38.5)
[2020-11-03] MEDS: dexameTHASONE 4 MG/ML 1ML VIAL (J1100 PER 1MG) IV SCH (08:24)
[2020-11-03] MEDS: ATORVASTATIN 20 MG TAB PO SCH (08:24)
[2020-11-03] MEDS: ENOXAPARIN 60MG/0.6ML SYRINGE (J1650 PER 10MG) SC SCH ×2 (08:25→20:17)
[2020-11-03] MEDS: LEVEMIR (INSULIN DETEMIR) 1 UNITS/0.01ML SC SCH ×2 (08:25→20:17)
[2020-11-03] MEDS: HumaLOG INSULIN (NovoLOG) PER UNIT SC SCH ×4 (08:26→20:18)
[2020-11-03 08:36] LABS: ALBUMIN 2.8 GM/DL (3.2-5.2); ALT/SGPT 74 U/L (12-78); BILIRUBIN,DIRECT 0.3 MG/DL (0.0-0.2); BILIRUBIN,TOTAL 0.7 MG/DL (0.2-1.0); BLOOD UREA NITROGEN 24 MG/DL (7-18); C REACTIVE PROTEIN QUANTITATIV 9.63 MG/DL (0.00-0.30); CARBON DIOXIDE LEVEL 24 MEQ/L (21-32); CHLORIDE LEVEL 102 MEQ/L (98-107); CREATININE FOR GFR 1.13 MG/DL (0.70-1.30); FERRITIN 1775 NG/ML (26-388); GLOMERULAR FILTRATION RATE > 60.0 (>60); GLUCOSE, FASTING 351 MG/DL (70-100); MAGNESIUM LEVEL 2.5 MG/DL (1.8-2.4); POTASSIUM SERUM 3.8 MEQ/L (3.5-5.1); SODIUM LEVEL 134 MEQ/L (136-145); TOTAL PROTEIN 6.6 GM/DL (6.4-8.2)
[2020-11-03 08:50] LABS: D-DIMER QUANT 859.48 ng/ml (<500)
[2020-11-03 09:29] LABS: ANISOCYTOSIS 1+; ATYPICAL LYMPH 4 % (0-5); LYMPHOCYTES 9 % (16-44); METAMYELOCYTES 1 % (0-0); MICROCYTOSIS 1+; MONOCYTES 6 % (0-5); MYELOCYTES 2 % (0-0); NEUTROPHILS 76 % (28-66); PLATELET ESTIMATE NORMAL (NORMAL)
--- NOTE | 2020-11-03 11:24 | IPNPDOC ---
Text Note Date of Service The patient was seen on 11/03/20. NOTE Subjective: Patient is a 45-year-old male who presented to the ER with worsening shortness of breath on exertion. 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 Patient was admitted to the hospital service for further evaluation and treatment. Patient was seen and examined at the bedside. Patient was sitting up at the edge of the bed. Denies any chest pain or palpitations. Patient reports that he does experience some shortness of breath when he exerts himself. Reports some mild cough without any expectoration of sputum. Denies any nausea, vomiting, ab dominal pain or diarrhea. He'll be working with physical therapy today Objective: Vitals (See below) General: Sitting up at the edge of the bed, appears to be comfortable, in no acute distress, is awake, alert and oriented 3 HEENT: NC, AT CVS: +S1S2 Lungs: Air entry appears to be fair but diminished bilaterally. No appreciated rhonchi, crackles or wheezing Abdomen: Soft, nondistended and nontender Extremities: Lower extremities do not reveal any edema, - Calf tenderness Imaging: CXR 11/01: Opacities suggesting multifocal pneumonia. CTA Chest 11/01: 1. Significant bilateral pulmonary consolidations consistent with COVID-19 pulmonary disease 2. No evidence for pulmonary embolus. CT abdomen / pelvis w/ IV contrast 11/01: 1. Hepatosplenomegaly along with hepatosteatosis. No focal hepatic or splenic lesions identified. 2. No acute abdominopelvic pathology appreciated. Assessment and plan: Acute hypoxic respiratory failure - likely 2/2 COVID19 pneumonia and possible superimposed bacterial pneumonia - Presented to the ER with complaints of SOB and non-productive cough - Patient supplemental oxygen requirement has improved from is down to 2 L nasal cannula - Inflammatory markers have had a slight improvement this morning - PCT elevated - Imaging reviewed - c/w Dexamethasone (Day #3) - c/w Zosyn (Day #3) - c/w incentive spirometry / acapella s/p Leukocytosis - Patient remains hemodynamically stable and afebrile - Pro-calcitonin noted; will follow trend - No lactic acidosis - Imaging noted possibility of pneumonia and COVID19 - See above Hyponatremia - likely 2/2 hypotonic hypovolemic etiology 2/2 diarrhea; possibly 2/2 hypotonic euvolemic etiology - possibly 2/2 SIADH - Continues to improve - Thyroid function / Cortisol noted - s/p IV fluids Mild elevation of AST - Imaging noted above with hepatosplenomegaly along with hepatosteatosis - Improving / Stable Mnires disease - Reported an episode of Vertigo on 1230 AM - No further episodes since arrival to ER - c/w Meclizine PRN Hypertension - BP well controlled - Will resume Lisinopril within 24-48 hours DLP - c/w Atorvastatin NIDDM2 with Hyperglycemia - likely 2/2 corticosteroid use - c/w ISS - Will again increase Levemir BID DVT prophylaxis - c/w weight based Lovenox Disposition: - Will work with PT today - Anticipate DC within 48-72 hours VS,Fishbone, I+O VS, Fishbone, I+O Laboratory Tests 11/03/20 07:14 Vital Signs Date Time Temp Pulse Resp B/P (MAP) Pulse Ox O2 Delivery O2 Flow Rate FiO2 11/03/20 08:00 97.7 95 22 126/76 (93) 94 Nasal Cannula 2.5 I&O- Last 24 Hours up to 6 AM 11/03/20 06:00 Intake Total 1910 ml Output Total 1400 ml Balance 510 ml RENETTA PRETTY MD Nov 03, 2020 11:24
[2020-11-04] VITALS: BP 126/80
[2020-11-04 04:00] VITALS: BP 131/78
[2020-11-04] MEDS: PIPERACILLIN/TAZOBACTAM SOD 3.375 GM in D5W MINI-BAG PLUS 50 ML IV SCH ×2 (05:20→11:08)
[2020-11-04 07:18] LABS: HEMATOCRIT 43.3 % (42.0-52.0); HEMOGLOBIN 14.1 g/dl (13.5-17.5); MEAN CORPUSCULAR HEMOGLOBIN 27.2 pg (27.0-33.0); MEAN CORPUSCULAR HGB CONC 32.6 g/dl (32.0-36.5); MEAN CORPUSCULAR VOLUME 83.6 fl (80.0-96.0); PLATELET COUNT, AUTOMATED 500 10^3/uL (150-450); RED BLOOD COUNT 5.18 10^6/uL (4.30-6.10); WHITE BLOOD COUNT 8.9 10^3/uL (4.0-10.0)
[2020-11-04 07:31] LABS: INR 1.08; PROTHROMBIN TIME 14.2 SECONDS (12.5-14.3)
[2020-11-04 07:32] LABS: PARTIAL THROMBOPLASTIN TIME 36.1 SECONDS (24.2-38.5)
[2020-11-04 07:40] LABS: D-DIMER QUANT 436.46 ng/ml (<500)
[2020-11-04 07:46] LABS: ALBUMIN 3.1 GM/DL (3.2-5.2); ALT/SGPT 71 U/L (12-78); BILIRUBIN,DIRECT 0.3 MG/DL (0.0-0.2); BILIRUBIN,TOTAL 0.8 MG/DL (0.2-1.0); BLOOD UREA NITROGEN 22 MG/DL (7-18); C REACTIVE PROTEIN QUANTITATIV 5.15 MG/DL (0.00-0.30); CALCIUM LEVEL 8.4 MG/DL (8.5-10.1); CARBON DIOXIDE LEVEL 25 MEQ/L (21-32); CHLORIDE LEVEL 101 MEQ/L (98-107); CREATININE FOR GFR 1.35 MG/DL (0.70-1.30); FERRITIN 1377 NG/ML (26-388); GLOMERULAR FILTRATION RATE > 60.0 (>60); GLUCOSE, FASTING 266 MG/DL (70-100); MAGNESIUM LEVEL 2.5 MG/DL (1.8-2.4); POTASSIUM SERUM 3.6 MEQ/L (3.5-5.1); SODIUM LEVEL 136 MEQ/L (136-145); TOTAL PROTEIN 7.2 GM/DL (6.4-8.2)
[2020-11-04 07:56] LABS: ATYPICAL LYMPH 7 % (0-5); LYMPHOCYTES 13 % (16-44); MONOCYTES 8 % (0-5); NEUTROPHILS 70 % (28-66); PLATELET ESTIMATE INCREASED (NORMAL)
[2020-11-04 08:00] VITALS: BP 153/78; O2SAT 97
[2020-11-04] MEDS: ATORVASTATIN 20 MG TAB PO SCH (09:42)
[2020-11-04] MEDS: LEVEMIR (INSULIN DETEMIR) 1 UNITS/0.01ML SC SCH (09:43)
[2020-11-04] MEDS: dexameTHASONE 4 MG/ML 1ML VIAL (J1100 PER 1MG) IV SCH (09:44)
[2020-11-04] MEDS: HumaLOG INSULIN (NovoLOG) PER UNIT SC SCH ×2 (09:44→11:09)
[2020-11-04] MEDS: ENOXAPARIN 60MG/0.6ML SYRINGE (J1650 PER 10MG) SC SCH (09:44)
[2020-11-04] MEDS ORDERED: MECL-86 PO (10:10)
[2020-11-04] MEDS ORDERED: ALCOPAD25 TOP (10:10)
[2020-11-04] MEDS ORDERED: AUGM875T28 PO (10:10)
[2020-11-04] MEDS ORDERED: INSU1MIS20 SC (10:10)
[2020-11-04] MEDS ORDERED: INSUDET SC (10:10)
[2020-11-04] MEDS ORDERED: PRED10TA2 PO (10:10)
[2020-11-04] MEDS ORDERED: NS 500 ML IV ONE (11:00)
[2020-11-04 12:00] VITALS: O2SAT 98
[2020-11-04] MEDS ORDERED: AMLO2.5T3 PO (13:34)
--- NOTE | 2020-11-04 13:37 | DS.PDOC ---
Discharge Summary General Date of Admission Nov 01, 2020 at 09:31 Date of Discharge 11/04/20 Discharge Summary PROCEDURES PERFORMED DURING STAY: [None]. ADMITTING DIAGNOSES / DISCHARGE DIAGNOSES: Acute hypoxic respiratory failure - likely 2/2 COVID19 pneumonia and possible superimposed bacterial pneumonia s/p Leukocytosis s/p Hyponatremia - likely 2/2 hypotonic hypovolemic etiology 2/2 diarrhea; possibly 2/2 hypotonic euvolemic etiology - possibly 2/2 SIADH Mild elevation of AST Mnires disease Hypertension DLP NIDDM2 with Hyperglycemia - likely 2/2 corticosteroid use DVT prophylaxis COMPLICATIONS/CHIEF COMPLAINT: COVID19 HISTORY OF PRESENT ILLNESS: Patient is a 45-year-old male who presented to the ER with worsening shortness of breath on exertion. 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 He noted he was expressing symptoms since 10/22 and tested positive for COVID19 on 10/25. Patient was admitted to the hospital service for further evaluation and treatment. HOSPITAL COURSE: Acute hypoxic respiratory failure - likely 2/2 COVID19 pneumonia and possible superimposed bacterial pneumonia - Presented to the ER with complaints of SOB and non-productive cough; reports significant improvement of breathing / cough - Currently tolerating room air - Inflammatory markers have trending down - PCT elevated; trending down - Imaging reviewed - Will start Prednisone and provide taper on discharge; Will DC Dexamethasone (Day #4) - Will provide Augmentin on discharge; Will DC Zosyn (Day #4) - c/w incentive spirometry / acapella s/p Leukocytosis - Patient remains hemodynamically stable and afebrile - Pro-calcitonin noted; will follow trend - No lactic acidosis - Imaging noted possibility of pneumonia and COVID19 - See above s/p Hyponatremia - likely 2/2 hypotonic hypovolemic etiology 2/2 diarrhea; possibly 2/2 hypotonic euvolemic etiology - possibly 2/2 SIADH - Normalized - Thyroid function / Cortisol noted - s/p IV fluids Mild elevation of AST - Imaging noted above with hepatosplenomegaly along with hepatosteatosis - Trending toward normal Mnires disease - Reported an episode of Vertigo on 1230 AM - No further episodes since arrival to ER - c/w Meclizine PRN Hypertension - BP well controlled - Will discontinue Lisinopril for now - Will provide low dose Amlodipine on discharge DLP - c/w Atorvastatin NIDDM2 with Hyperglycemia - likely 2/2 corticosteroid use - c/w ISS - Will resume Metformin on discharge - Will provide low dose Levemir while on Prednisone taper DVT prophylaxis - c/w weight based Lovenox DISCHARGE MEDICATIONS: Please see below. ALLERGIES: Please see below. PHYSICAL EXAMINATION ON DISCHARGE: Vitals (See below) General: Sitting up at the edge of the bed, is not appear to be in any acute distress and appears to be very comfortable, is awake, alert and oriented 3 HEENT: NC, AT CVS: +S1S2 Lungs: Air entry appears to have improved from yesterday does not appear to be any rhonchi, crackles or wheezing Abdomen: Abdomen remains soft without any distention or tenderness Extremities: No evidence of edema, - Calf tenderness LABORATORY DATA: Please see below. IMAGING: CXR 11/01: Opacities suggesting multifocal pneumonia. CTA Chest 11/01: 1. Significant bilateral pulmonary consolidations consistent with COVID-19 pulmonary disease 2. No evidence for pulmonary embolus. CT abdomen / pelvis w/ IV contrast 11/01: 1. Hepatosplenomegaly along with hepatosteatosis. No focal hepatic or splenic lesions identified. 2. No acute abdominopelvic pathology appreciated. ACTIVITY: [As tolerated]. DISCHARGE PLAN: Follow up with PCP within 7 days Remain compliant with treatment plan and medications Return to the ER if you experience any problems DISPOSITION: Home, Self-Care. DISCHARGE CONDITION: [Stable]. TIME SPENT ON DISCHARGE: 35 minutes Vital Signs/I&Os Vital Signs Date Time Temp Pulse Resp B/P (MAP) Pulse Ox O2 Delivery O2 Flow Rate FiO2 11/04/20 08:00 96.0 111 18 153/78 (103) 97 Room Air 11/03/20 16:00 0.0 I&O- Last 24 Hours up to 6 AM 11/04/20 06:00 Intake Total 1340 ml Output Total 700 ml Balance 640 ml Laboratory Data Labs 24H Laboratory Tests 2 11/04/20 06:11: Immature Granulocyte % (Auto) , Neutrophils (%) (Auto) , Nucleated Red Blood Cells % (auto) 0.0, Neutrophils 70H, Band Neutrophils 2, Lymphocytes (Manual) 13L, Monocytes (Manual) 8H, Atypical Lymphocytes 7H, Platelet Estimate INCREASED, Prothrombin Time 14.2H, Prothromb Time International Ratio 1.08, Activated Partial Thromboplast Time 36.1, Fibrinogen 789H, D-Dimer, Quantitative 436.46, Anion Gap 10, Glomerular Filtration Rate > 60.0, Calcium Level 8.4L, Magnesium Level 2.5H, Ferritin 1377H, Total Bilirubin 0.8, Direct Bilirubin 0.3H, Aspartate Amino Transf (AST/SGOT) 41H, Alanine Aminotransferase (ALT/SGPT) 71, Alkaline Phosphatase 89, C-Reactive Protein, Quantitative 5.15H, Total Protein 7.2, Albumin 3.1L, Albumin/Globulin Ratio 0.8, Procalcitonin 0.28 CBC/BMP Laboratory Tests 11/04/20 06:11 Microbiology Microbiology 11/01/20 Blood Culture - Preliminary, Resulted No Growth after 72 hours. All specime... 11/01/20 Blood Culture - Preliminary, Resulted No Growth after 72 hours. All specime... Discharge Medications Scheduled Amoxicillin/Potassium Clav (Augmentin 875-125 Tablet) 1 Each Tablet, 1 TAB PO BID Atorvastatin Calcium (Atorvastatin Calcium) 20 Mg Tablet, 20 MG PO DAILY, (Reported) Dulaglutide (Trulicity) 0.75 Mg/0.5 Ml Pen.injctr, 0.75 MG SC QWEEK, (Reported) WEDNESDAYS Insulin Detemir (Levemir) 100 Unit/1 Ml Vial, 7 UNITS SC BID 2 week supply to be used while on prednisone taper Metformin HCl (Metformin HCl ER) 750 Mg Tab.er.24h, 1,500 MG PO QPM, (Reported) TAKES AROUND DINNERTIME Prednisone (Prednisone) 10 Mg Tablet, 10 MG PO TAPER Take 4 tabs daily x 3 days, then 3 tabs daily x 3 days, then 2 tabs daily x 3 days, then 1 tab daily x 3 days and stop Scheduled PRN Meclizine HCl (Meclizine HCl) 25 Mg Tablet, 25 MG PO TIDP PRN for dizziness Tadalafil (Cialis) 5 Mg Tablet, 5 MG PO DAILY PRN for DIZZINESS, (Reported) FOR MENIERE'S DISEASE Allergies Coded Allergies: No Known Allergies (Unverified , 01/26/19) RENETTA PRETTY MD Nov 04, 2020 13:37
[2020-11-04 17:08] LABS: HEPATITIS B CORE ANTIBODY IGG Negative (Negative); MYCOPLASMA PNEUMONIAE IgG 174 U/mL (0-99); MYCOPLASMA PNEUMONIAE IgM <770 U/mL (0-769)
[2020-11-06 18:10] LABS: BODY FLUID CULTURE Not indicated. (.); LEGIONELLA ANTIGEN URINE Negative (Negative); ORGANISM ID Not indicated. (.); SPECIMEN SOURCE Urine (.); URINE STREP PNEUMONIAE ANTIGEN Negative (Negative)
== END 2020-11-04 13:00 | disposition home or self-care (01) | DRG 137 ==
LOC: M ED 05:34 → M ED INP 09:31 → M 4MAIN 12:48
PROVIDERS: ADMIT Internal Medicine; ATTEND Internal Medicine
DX: U07.1 COVID-19 (principal); J96.01 Acute respiratory failure with hypoxia; J15.9 Unspecified bacterial pneumonia; E87.1 Hypo-osmolality and hyponatremia; J12.89 Other viral pneumonia; E11.65 Type 2 diabetes mellitus with hyperglycemia; I10 Essential (primary) hypertension; E78.00 Pure hypercholesterolemia, unspecified; H81.09 Meniere's disease, unspecified ear; Z79.4 Long term (current) use of insulin; Z79.899 Other long term (current) drug therapy

== ENCOUNTER → 2021-01-08 | Outpatient (CLI) | payer BC ==
[~2021-01-08] MED LIST changes: +ALCOPAD25 TOP; +AMLO2.5T3 PO; +ATOR1TAB21 PO; +AUGM875T28 PO; +CIAL5TAB PO; +INSU1MIS20 SC; +INSUDET SC; +LISI10TA22; +LISI10TA22 PO; -LISI10TA4; +MECL-86 PO; +METF750T36 PO; +PRED10TA2 PO; +TRUL10IN SC
--- NOTE | 2021-01-08 13:22 | REPPI ---
INDICATION: PNEUMONIA DUES TO COVID COMPARISON: 11/01/2020 as well as other prior exams. TECHNIQUE: PA/Lateral FINDINGS: There is mild chronic elevation of the right knee diaphragm with linear fibro atelectatic change in the right lung base. The previously noted infiltrates have resolved. The heart is not enlarged. The mediastinal silhouette is unremarkable and unchanged. The visualized osseous structures are unremarkable. IMPRESSION: No acute pulmonary disease. The previously noted bilateral infiltrates have resolved. <Electronically signed by Christofer Villegas > 01/08/21 [id number]
== END ==
LOC: M PLAIMG 12:57
PROVIDERS: ATTEND Internal Medicine
DX: U07.1 COVID-19 (principal); J12.82 Pneumonia due to coronavirus disease 2019

== ENCOUNTER → 2021-01-30 | Outpatient (CLI) | payer BC ==
[2021-01-30 09:43] LABS: ALBUMIN 4.4 GM/DL (3.2-5.2); ALT/SGPT 33 U/L (12-78); BILIRUBIN,TOTAL 0.5 MG/DL (0.2-1.0); BLOOD UREA NITROGEN 19 MG/DL (7-18); CALCIUM LEVEL 9.1 MG/DL (8.5-10.1); CARBON DIOXIDE LEVEL 28 MEQ/L (21-32); CHLORIDE LEVEL 107 MEQ/L (98-107); CHOLESTEROL LEVEL 162 MG/DL (<200); CHOLESTEROL RISK RATIO 2.945 (<5); CREATININE FOR GFR 1.01 MG/DL (0.70-1.30); GLOMERULAR FILTRATION RATE > 60.0 (>60); GLUCOSE, FASTING 184 MG/DL (70-100); HDL CHOLESTEROL 55 MG/DL (>40); LDL CHOLESTEROL 43 MG/DL (<100); MAGNESIUM LEVEL 2.2 MG/DL (1.8-2.4); NON-HDL-C 107 MG/DL; POTASSIUM SERUM 4.5 MEQ/L (3.5-5.1); SODIUM LEVEL 139 MEQ/L (136-145); TOTAL PROTEIN 7.4 GM/DL (6.4-8.2); TRIGLYCERIDES LEVEL 319 MG/DL (<150)
[2021-01-30 09:55] LABS: HEMOGLOBIN A1c 6.9 %
== END ==
LOC: M LAB 08:18
PROVIDERS: ATTEND Internal Medicine
DX: E78.00 Pure hypercholesterolemia, unspecified (principal); E11.9 Type 2 diabetes mellitus without complications; I10 Essential (primary) hypertension

== ENCOUNTER → 2021-07-18 | Outpatient (CLI) | payer BC ==
[2021-07-18 11:23] LABS: BASO # 0.1 10^3/uL (0.0-0.2); BASO % 0.7 % (0.0-1.0); EOS # 0.1 10^3/uL (0.0-0.5); EOS % 1.9 % (0.0-3.0); HEMATOCRIT 46.3 % (42.0-52.0); HEMOGLOBIN 15.2 g/dl (13.5-17.5); LYMPH # 1.7 10^3/uL (1.5-5.0); LYMPH % 24.8 % (24.0-44.0); MEAN CORPUSCULAR HEMOGLOBIN 28.8 pg (27.0-33.0); MEAN CORPUSCULAR HGB CONC 32.8 g/dl (32.0-36.5); MEAN CORPUSCULAR VOLUME 87.7 fl (80.0-96.0); MONO # 0.6 10^3/uL (0.0-0.8); MONO % 8.8 % (2.0-8.0); NEUTROPHILS # 4.1 10^3/uL (1.5-8.5); NEUTROPHILS % 61.9 % (36.0-66.0); PLATELET COUNT, AUTOMATED 260 10^3/uL (150-450); RED BLOOD COUNT 5.28 10^6/uL (4.30-6.10); WHITE BLOOD COUNT 6.7 10^3/uL (4.0-10.0)
[2021-07-18 12:10] LABS: ALBUMIN 4.1 GM/DL (3.2-5.2); ALT/SGPT 39 U/L (12-78); BILIRUBIN,TOTAL 0.6 MG/DL (0.2-1.0); BLOOD UREA NITROGEN 16 MG/DL (7-18); CALCIUM LEVEL 9.2 MG/DL (8.5-10.1); CARBON DIOXIDE LEVEL 27 MEQ/L (21-32); CHLORIDE LEVEL 105 MEQ/L (98-107); CHOLESTEROL LEVEL 139 MG/DL (<200); CHOLESTEROL RISK RATIO 2.957 (<5); GLOMERULAR FILTRATION RATE > 60.0 (>60); GLUCOSE, FASTING 138 MG/DL (70-100); HDL CHOLESTEROL 47 MG/DL (>40); LDL CHOLESTEROL 55 MG/DL (<100); MAGNESIUM LEVEL 2.2 MG/DL (1.8-2.4); NON-HDL-C 92 MG/DL; POTASSIUM SERUM 4.3 MEQ/L (3.5-5.1); SODIUM LEVEL 140 MEQ/L (136-145); TOTAL PROTEIN 7.1 GM/DL (6.4-8.2); TRIGLYCERIDES LEVEL 186 MG/DL (<150)
[2021-07-18 12:22] LABS: HEMOGLOBIN A1c 6.4 %
== END ==
LOC: M PLALAB 07:53
PROVIDERS: ATTEND Internal Medicine
DX: E11.9 Type 2 diabetes mellitus without complications (principal); Z11.59 Encounter for screening for other viral diseases; E78.00 Pure hypercholesterolemia, unspecified; H81.02 Meniere's disease, left ear; I10 Essential (primary) hypertension

== ENCOUNTER → 2021-12-13 | Outpatient (CLI) | payer BC | LOC: M LABSMTC 09:21 | PROVIDERS: ATTEND Anesthesiology | DX: Z01.812 Encounter for preprocedural laboratory examination (principal); Z20.822 Contact with and (suspected) exposure to COVID-19 ==

== ENCOUNTER 2021-12-18 06:43 | Day surgery (SDC) | payer BC ==
[~2021-12-18] VITALS: Ht 182.9 cm; Wt 115.7 kg
[~2021-12-18 06:43] MED LIST changes: +NS 1,000 ML IV ONE; +SIMETHICONE 40MG/0.6ML DROPS 30ML As Ordered ONE
[2021-12-18] MEDS ORDERED: propofoL 200 MG/20 ML VIAL As Ordered ONE ×2 (07:06→07:44)
[2021-12-18] MEDS ORDERED: MIDAZOLAM INJ 2MG/2ML VIAL (J2250 PER 1MG) As Ordered ONE (07:34)
[2021-12-18] MEDS ORDERED: LIDOCAINE 2% 100MG/5ML SDV (FOR ANES.) As Ordered ONE (07:37)
[2021-12-18 08:30] VITALS: BP 120/83
== END 2021-12-18 08:40 | disposition home or self-care (01) ==
LOC: M OPP 06:43
PROVIDERS: ATTEND Internal Medicine Gastroenterology
DX: Z12.11 Encounter for screening for malignant neoplasm of colon (principal); K62.1 Rectal polyp; K64.8 Other hemorrhoids; Z79.84 Long term (current) use of oral hypoglycemic drugs; Z79.899 Other long term (current) drug therapy
CPT/HCPCS: 45385; 88305; J2250

== ENCOUNTER 2022-03-07 06:46 | Emergency (ER) | payer BC ==
[~2022-03-07] VITALS: Ht 182.9 cm; Wt 112.3 kg
[~2022-03-07 06:46] MED LIST changes: -NS 1,000 ML IV ONE; -SIMETHICONE 40MG/0.6ML DROPS 30ML As Ordered ONE
[2022-03-07 08:43] LABS: BASO % 0.3 % (0.0-1.0); EOS # 0.1 10^3/uL (0.0-0.5); EOS % 0.6 % (0.0-3.0); HEMATOCRIT 47.8 % (42.0-52.0); LYMPH # 1.3 10^3/uL (1.5-5.0); LYMPH % 13.5 % (24.0-44.0); MEAN CORPUSCULAR HEMOGLOBIN 28.5 pg (27.0-33.0); MEAN CORPUSCULAR HGB CONC 33.5 g/dl (32.0-36.5); MEAN CORPUSCULAR VOLUME 85.1 fl (80.0-96.0); MONO # 0.8 10^3/uL (0.0-0.8); MONO % 8.9 % (2.0-8.0); NEUTROPHILS # 7.1 10^3/uL (1.5-8.5); NEUTROPHILS % 75.4 % (36.0-66.0); PLATELET COUNT, AUTOMATED 251 10^3/uL (150-450); RED BLOOD COUNT 5.62 10^6/uL (4.30-6.10); WHITE BLOOD COUNT 9.4 10^3/uL (4.0-10.0)
[2022-03-07 09:03] LABS: ERYTHROCYTE SEDIMENTATION RATE 7 mm/hr (0-15)
[2022-03-07] MEDS ORDERED: LIDOCAINE 1% MDV 20ML VIAL SC ONE (09:40)
[2022-03-07 09:46] LABS: ALBUMIN 4.2 GM/DL (3.2-5.2); BILIRUBIN,DIRECT 0.2 MG/DL (0.0-0.2); BILIRUBIN,TOTAL 0.9 MG/DL (0.2-1.0); C REACTIVE PROTEIN QUANTITATIV 1.98 MG/DL (0.00-0.30); TOTAL PROTEIN 7.5 GM/DL (6.4-8.2); URIC ACID 3.7 MG/DL (3.5-7.2)
[2022-03-07] MEDS ORDERED: NS 1,000 ML IV ONE (09:50)
[2022-03-07] MEDS ORDERED: DOXYCYCLINE HYCLATE 100 MG in D5W MINI-BAG PLUS 100 ML IV ONE (10:20)
[2022-03-07] MEDS ORDERED: DOXY-443 PO (11:43)
[2022-03-07 12:56] VITALS: BP 130/70
[2022-03-08] MEDS ORDERED: DOXY100T27 PO (12:31)
== END 2022-03-07 13:30 | disposition home or self-care (01) ==
LOC: M ED 06:46
DX: M70.21 Olecranon bursitis, right elbow (principal); R74.02 Elevation of levels of lactic acid dehydrogenase [LDH]; Z79.899 Other long term (current) drug therapy

== ENCOUNTER 2022-03-08 07:39 | Inpatient (IN) | payer BC ==
[~2022-03-08] VITALS: Ht 182.9 cm; Wt 117.0 kg
[~2022-03-08 07:39] MED LIST changes: +DOXY-443 PO
[2022-03-08] MEDS ORDERED: NS 1,000 ML IV ONE (08:35)
[2022-03-08] MEDS ORDERED: cefTRIAXone SOD 1 GM in D5W MINI-BAG PLUS 50 ML IV ONE (08:35)
[2022-03-08 08:39] LABS: BASO % 0.3 % (0.0-1.0); EOS % 0.3 % (0.0-3.0); HEMATOCRIT 41.9 % (42.0-52.0); LYMPH # 1.1 10^3/uL (1.5-5.0); LYMPH % 8.7 % (24.0-44.0); MEAN CORPUSCULAR HEMOGLOBIN 28.6 pg (27.0-33.0); MEAN CORPUSCULAR HGB CONC 33.4 g/dl (32.0-36.5); MEAN CORPUSCULAR VOLUME 85.7 fl (80.0-96.0); MONO # 1.2 10^3/uL (0.0-0.8); MONO % 9.4 % (2.0-8.0); NEUTROPHILS # 10.1 10^3/uL (1.5-8.5); PLATELET COUNT, AUTOMATED 237 10^3/uL (150-450); RED BLOOD COUNT 4.89 10^6/uL (4.30-6.10); WHITE BLOOD COUNT 12.7 10^3/uL (4.0-10.0)
[2022-03-08] MEDS ORDERED: cefTRIAXone SOD 2 GM in D5W MINI-BAG PLUS 50 ML IV ONE (08:40)
[2022-03-08 08:51] LABS: VENOUS BASE EXCESS -2.6 (-2.0-2.0); VENOUS HCO3 22.8 MEQ/L (23.0-27.0); VENOUS O2 SATURATION 83.4 % (60.0-80.0); VENOUS PARTIAL PRESSURE CO2 41.7 mmHg (38.0-50.0); VENOUS PARTIAL PRESSURE O2 44.8 mmHg (30.0-50.0); VENOUS PH 7.356 UNITS (7.330-7.430); VENOUS TOTAL CO2 24.1 MEQ/L (24.0-28.0)
[2022-03-08 08:52] LABS: OSMOLALITY SERUM 295 MOSM/KG (275-295)
[2022-03-08 08:56] LABS: ALBUMIN 3.7 GM/DL (3.2-5.2); ALT/SGPT 26 U/L (12-78); BILIRUBIN,TOTAL 1.6 MG/DL (0.2-1.0); BLOOD UREA NITROGEN 13 MG/DL (7-18); CALCIUM LEVEL 9.4 MG/DL (8.5-10.1); CARBON DIOXIDE LEVEL 24 MEQ/L (21-32); CHLORIDE LEVEL 105 MEQ/L (98-107); CREATININE FOR GFR 0.94 MG/DL (0.70-1.30); GLOMERULAR FILTRATION RATE > 60.0 (>60); GLUCOSE, FASTING 316 MG/DL (70-100); POTASSIUM SERUM 4.2 MEQ/L (3.5-5.1); SODIUM LEVEL 137 MEQ/L (136-145); TOTAL PROTEIN 6.9 GM/DL (6.4-8.2)
[2022-03-08 09:12] LABS: ERYTHROCYTE SEDIMENTATION RATE 27 mm/hr (0-15)
[2022-03-08 11:34] LABS: ACETONE/KETONE 1.99 MG/DL (<2.81)
[2022-03-08] MEDS ORDERED: ACETAMINOPHEN TAB 650MG DOSE (2X325MG) PO PRN (11:55)
[2022-03-08] MEDS ORDERED: PIPERACILLIN/TAZOBACTAM SOD 3.375 GM in D5W MINI-BAG PLUS 50 ML IV SCH (12:05)
[2022-03-08] MEDS ORDERED: VANCOMYCIN HCL 1,000 MG, VIAL MATE ADAPTER 1 EACH in NS 250 ML IV SCH (12:05)
[2022-03-08] MEDS ORDERED: GLUCOSE 4GM CHEW TABLET PO PRN (12:30)
[2022-03-08] MEDS ORDERED: DEXTROSE 50% 50 ML SYRINGE IV PRN (12:30)
[2022-03-08] MEDS ORDERED: GLUCAGON INJ 1MG VIAL SC PRN (12:30)
[2022-03-08] MEDS ORDERED: DOXY100T27 PO (12:31)
[2022-03-08] MEDS ORDERED: HOME MED LIST COMPLETE! XX SCH (12:35)
[2022-03-08 12:42] LABS: RSV AMPLIFICATION NEGATIVE (NEGATIVE)
[2022-03-08 13:37] LABS: HEMOGLOBIN A1c 8.8 %
[2022-03-08] MEDS: HumaLOG INSULIN (NovoLOG) PER UNIT SC SCH ×3 (13:38→21:00)
[2022-03-08] MEDS: HEPARIN SOD (PORCINE) 5000UNITS/ML 1ML VIAL/SYRINGE SQ SCH ×2 (13:46→21:54)
[2022-03-08] MEDS ORDERED: VANCOMYCIN HCL 1,000 MG, VIAL MATE ADAPTER 1 EACH in NS 250 ML IV ONE ×2 (14:00→15:00)
[2022-03-08] MEDS ORDERED: diphenhydrAMINE 25MG CAP PO ONE (16:20)
[2022-03-08 17:00] VITALS: BP 137/87
[2022-03-08] MEDS: VANCOMYCIN HCL 750 MG, VIAL MATE ADAPTER 1 EACH in NS 250 ML IV SCH (21:54)
[2022-03-08 22:00] VITALS: BP 116/61
[2022-03-08] MEDS: VANCOMYCIN HCL 500 MG in D5W MINI-BAG PLUS 100 ML IV SCH (23:15)
[2022-03-09] MEDS: HEPARIN SOD (PORCINE) 5000UNITS/ML 1ML VIAL/SYRINGE SQ SCH ×3 (05:15→21:30)
[2022-03-09 05:56] VITALS: BP 134/88
[2022-03-09] MEDS: HumaLOG INSULIN (NovoLOG) PER UNIT SC SCH ×4 (08:13→21:00)
[2022-03-09] MEDS: ATORVASTATIN 20 MG TAB PO SCH (08:13)
[2022-03-09 08:29] LABS: BASO % 0.4 % (0.0-1.0); EOS # 0.1 10^3/uL (0.0-0.5); EOS % 0.5 % (0.0-3.0); HEMATOCRIT 40.2 % (42.0-52.0); HEMOGLOBIN 13.3 g/dl (13.5-17.5); LYMPH % 9.3 % (24.0-44.0); MEAN CORPUSCULAR HGB CONC 33.1 g/dl (32.0-36.5); MEAN CORPUSCULAR VOLUME 87.6 fl (80.0-96.0); MONO # 0.9 10^3/uL (0.0-0.8); NEUTROPHILS # 8.6 10^3/uL (1.5-8.5); NEUTROPHILS % 80.4 % (36.0-66.0); PLATELET COUNT, AUTOMATED 224 10^3/uL (150-450); RED BLOOD COUNT 4.59 10^6/uL (4.30-6.10); WHITE BLOOD COUNT 10.7 10^3/uL (4.0-10.0)
[2022-03-09 08:59] LABS: ALBUMIN 3.1 GM/DL (3.2-5.2); ALT/SGPT 24 U/L (12-78); BILIRUBIN,TOTAL 1.2 MG/DL (0.2-1.0); BLOOD UREA NITROGEN 9 MG/DL (7-18); CALCIUM LEVEL 8.7 MG/DL (8.5-10.1); CARBON DIOXIDE LEVEL 24 MEQ/L (21-32); CHLORIDE LEVEL 107 MEQ/L (98-107); CREATININE FOR GFR 0.97 MG/DL (0.70-1.30); GLOMERULAR FILTRATION RATE > 60.0 (>60); GLUCOSE, FASTING 290 MG/DL (70-100); POTASSIUM SERUM 3.8 MEQ/L (3.5-5.1); SODIUM LEVEL 138 MEQ/L (136-145); TOTAL PROTEIN 6.3 GM/DL (6.4-8.2)
[2022-03-09] MEDS: VANCOMYCIN HCL 750 MG, VIAL MATE ADAPTER 1 EACH in NS 250 ML IV SCH (09:29)
[2022-03-09] MEDS: VANCOMYCIN HCL 500 MG in D5W MINI-BAG PLUS 100 ML IV SCH (10:33)
[2022-03-09] MEDS: PIPERACILLIN/TAZOBACTAM SOD 3.375 GM in D5W MINI-BAG PLUS 50 ML IV SCH ×3 (11:57→21:29)
[2022-03-09 14:00] VITALS: BP 154/84
[2022-03-09 15:27] VITALS: BP 131/78
[2022-03-09] MEDS: NS 1,000 ML IV SCH (15:44)
[2022-03-09] MEDS: VANCOMYCIN HCL 1,000 MG, VIAL MATE ADAPTER 1 EACH in NS 250 ML IV SCH (17:58)
[2022-03-09 21:29] VITALS: BP 126/76
[2022-03-09 22:00] VITALS: BP 126/76
[2022-03-10] MEDS: VANCOMYCIN HCL 1,000 MG, VIAL MATE ADAPTER 1 EACH in NS 250 ML IV SCH ×2 (02:25→09:46)
[2022-03-10] MEDS: PIPERACILLIN/TAZOBACTAM SOD 3.375 GM in D5W MINI-BAG PLUS 50 ML IV SCH ×2 (03:58→09:45)
[2022-03-10] MEDS: HEPARIN SOD (PORCINE) 5000UNITS/ML 1ML VIAL/SYRINGE SQ SCH (05:47)
[2022-03-10 06:00] VITALS: BP 131/82
[2022-03-10] MEDS: NS 1,000 ML IV SCH (08:17)
[2022-03-10] MEDS: HumaLOG INSULIN (NovoLOG) PER UNIT SC SCH ×2 (08:17→12:00)
[2022-03-10 09:25] LABS: BASO % 0.5 % (0.0-1.0); EOS # 0.1 10^3/uL (0.0-0.5); HEMATOCRIT 40.6 % (42.0-52.0); HEMOGLOBIN 13.3 g/dl (13.5-17.5); LYMPH % 11.7 % (24.0-44.0); MEAN CORPUSCULAR HGB CONC 32.8 g/dl (32.0-36.5); MEAN CORPUSCULAR VOLUME 88.6 fl (80.0-96.0); MONO # 0.7 10^3/uL (0.0-0.8); NEUTROPHILS # 6.6 10^3/uL (1.5-8.5); NEUTROPHILS % 76.9 % (36.0-66.0); PLATELET COUNT, AUTOMATED 265 10^3/uL (150-450); RED BLOOD COUNT 4.58 10^6/uL (4.30-6.10); WHITE BLOOD COUNT 8.6 10^3/uL (4.0-10.0)
[2022-03-10 09:41] LABS: ALT/SGPT 42 U/L (12-78); BILIRUBIN,TOTAL 0.7 MG/DL (0.2-1.0); BLOOD UREA NITROGEN 11 MG/DL (7-18); CALCIUM LEVEL 8.7 MG/DL (8.5-10.1); CARBON DIOXIDE LEVEL 21 MEQ/L (21-32); CHLORIDE LEVEL 110 MEQ/L (98-107); CREATININE FOR GFR 1.08 MG/DL (0.70-1.30); GLOMERULAR FILTRATION RATE > 60.0 (>60); GLUCOSE, FASTING 291 MG/DL (70-100); POTASSIUM SERUM 3.8 MEQ/L (3.5-5.1); SODIUM LEVEL 140 MEQ/L (136-145); TOTAL PROTEIN 6.5 GM/DL (6.4-8.2)
[2022-03-10] MEDS: ATORVASTATIN 20 MG TAB PO SCH (09:45)
[2022-03-10] MEDS ORDERED: BACT800T5 PO (09:56)
[2022-03-10] MEDS ORDERED: AMOX875T2 PO (09:56)
== END 2022-03-10 12:10 | disposition home or self-care (01) | DRG 383 ==
LOC: M ED 07:39 → M ED INP 12:19 → ENRESERV 15:36 → M MSPAV 16:45
PROVIDERS: ADMIT Internal Medicine; ATTEND Internal Medicine
DX: L03.113 Cellulitis of right upper limb (principal); I10 Essential (primary) hypertension; E78.00 Pure hypercholesterolemia, unspecified; H81.02 Meniere's disease, left ear; E78.5 Hyperlipidemia, unspecified; E87.2 Acidosis; M70.31 Other bursitis of elbow, right elbow; Z20.822 Contact with and (suspected) exposure to COVID-19; Z79.84 Long term (current) use of oral hypoglycemic drugs; Z79.899 Other long term (current) drug therapy; T36.8X5A Adverse effect of other systemic antibiotics, initial encounter; E11.628 Type 2 diabetes mellitus with other skin complications

== ENCOUNTER → 2022-03-12 | Outpatient (CLI) | payer BC ==
[~2022-03-12] MED LIST changes: +AMOX875T2 PO; +BACT800T5 PO; +DOXY100T27 PO
[2022-03-12 10:40] LABS: HEMATOCRIT 42.4 % (42.0-52.0); HEMOGLOBIN 13.4 g/dl (13.5-17.5); MEAN CORPUSCULAR HEMOGLOBIN 28.3 pg (27.0-33.0); MEAN CORPUSCULAR HGB CONC 31.6 g/dl (32.0-36.5); MEAN CORPUSCULAR VOLUME 89.5 fl (80.0-96.0); PLATELET COUNT, AUTOMATED 332 10^3/uL (150-450); RED BLOOD COUNT 4.74 10^6/uL (4.30-6.10); WHITE BLOOD COUNT 7.6 10^3/uL (4.0-10.0)
[2022-03-12 11:15] LABS: EOSINOPHILS 1 % (0-3); LYMPHOCYTES 22 % (16-44); METAMYELOCYTES 3 % (0-0); MONOCYTES 10 % (0-5); NEUTROPHILS 64 % (28-66); PLATELET ESTIMATE NORMAL (NORMAL)
== END ==
LOC: M PLALAB 07:46
PROVIDERS: ATTEND Orthopaedic Surgery Hand Surgery
DX: L03.114 Cellulitis of left upper limb (principal)

== ENCOUNTER → 2022-03-25 | Outpatient (CLI) | payer BC ==
[2022-03-25 15:29] LABS: BASO # 0.1 10^3/uL (0.0-0.2); BASO % 0.9 % (0.0-1.0); EOS # 0.1 10^3/uL (0.0-0.5); HEMATOCRIT 44.2 % (42.0-52.0); HEMOGLOBIN 14.5 g/dl (13.5-17.5); LYMPH # 2.1 10^3/uL (1.5-5.0); LYMPH % 29.2 % (24.0-44.0); MEAN CORPUSCULAR HEMOGLOBIN 28.3 pg (27.0-33.0); MEAN CORPUSCULAR HGB CONC 32.8 g/dl (32.0-36.5); MEAN CORPUSCULAR VOLUME 86.3 fl (80.0-96.0); MONO # 0.7 10^3/uL (0.0-0.8); MONO % 9.8 % (2.0-8.0); NEUTROPHILS % 57.4 % (36.0-66.0); PLATELET COUNT, AUTOMATED 362 10^3/uL (150-450); RED BLOOD COUNT 5.12 10^6/uL (4.30-6.10)
[2022-03-25 15:48] LABS: BLOOD UREA NITROGEN 22 MG/DL (7-18); CALCIUM LEVEL 9.4 MG/DL (8.5-10.1); CARBON DIOXIDE LEVEL 26 MEQ/L (21-32); CHLORIDE LEVEL 106 MEQ/L (98-107); CREATININE FOR GFR 1.11 MG/DL (0.70-1.30); GLOMERULAR FILTRATION RATE > 60.0 (>60); GLUCOSE, FASTING 275 MG/DL (70-100); POTASSIUM SERUM 4.7 MEQ/L (3.5-5.1); SODIUM LEVEL 138 MEQ/L (136-145)
[2022-03-25 16:01] LABS: ERYTHROCYTE SEDIMENTATION RATE 8 mm/hr (0-15)
== END ==
LOC: M PLALAB 14:29
PROVIDERS: ATTEND Internal Medicine Infectious Disease
DX: M70.21 Olecranon bursitis, right elbow (principal)

== ENCOUNTER → 2022-05-09 | Outpatient (CLI) | payer BC ==
[2022-05-09 07:16] LABS: BASO # 0.1 10^3/uL (0.0-0.2); BASO % 0.9 % (0.0-1.0); EOS # 0.1 10^3/uL (0.0-0.5); EOS % 2.5 % (0.0-3.0); HEMATOCRIT 45.3 % (42.0-52.0); HEMOGLOBIN 14.8 g/dl (13.5-17.5); LYMPH # 1.8 10^3/uL (1.5-5.0); LYMPH % 31.3 % (24.0-44.0); MEAN CORPUSCULAR HEMOGLOBIN 28.7 pg (27.0-33.0); MEAN CORPUSCULAR HGB CONC 32.7 g/dl (32.0-36.5); MEAN CORPUSCULAR VOLUME 87.8 fl (80.0-96.0); MONO # 0.6 10^3/uL (0.0-0.8); MONO % 10.2 % (2.0-8.0); NEUTROPHILS % 53.3 % (36.0-66.0); PLATELET COUNT, AUTOMATED 279 10^3/uL (150-450); RED BLOOD COUNT 5.16 10^6/uL (4.30-6.10); WHITE BLOOD COUNT 5.6 10^3/uL (4.0-10.0)
[2022-05-09 07:46] LABS: HEMOGLOBIN A1c 8.6 %
[2022-05-09 07:51] LABS: ALBUMIN 4.1 GM/DL (3.2-5.2); ALT/SGPT 40 U/L (12-78); BILIRUBIN,TOTAL 0.5 MG/DL (0.2-1.0); BLOOD UREA NITROGEN 12 MG/DL (7-18); CALCIUM LEVEL 8.7 MG/DL (8.5-10.1); CARBON DIOXIDE LEVEL 24 MEQ/L (21-32); CHLORIDE LEVEL 109 MEQ/L (98-107); CHOLESTEROL LEVEL 129 MG/DL (<200); CREATININE FOR GFR 1.04 MG/DL (0.70-1.30); GLOMERULAR FILTRATION RATE > 60.0 (>60); GLUCOSE, FASTING 207 MG/DL (70-100); HDL CHOLESTEROL 50 MG/DL (>40); LDL CHOLESTEROL 33 MG/DL (<100); MAGNESIUM LEVEL 2.1 MG/DL (1.8-2.4); NON-HDL-C 79 MG/DL; POTASSIUM SERUM 4.2 MEQ/L (3.5-5.1); SODIUM LEVEL 139 MEQ/L (136-145); TOTAL PROTEIN 7.2 GM/DL (6.4-8.2); TRIGLYCERIDES LEVEL 229 MG/DL (<150)
[2022-05-09 08:01] LABS: CREATININE, URINE 39.1 MG/DL; MALB URINE SIEMENS 5.1 MG/L
== END ==
LOC: M LAB 06:31
PROVIDERS: ATTEND Internal Medicine
DX: E11.9 Type 2 diabetes mellitus without complications (principal)

== ENCOUNTER → 2022-07-25 | Outpatient (CLI) | payer BC ==
[2022-07-25 13:04] LABS: ALBUMIN 4.4 GM/DL (3.2-5.2); ALT/SGPT 43 U/L (12-78); BLOOD UREA NITROGEN 13 MG/DL (7-18); CALCIUM LEVEL 9.5 MG/DL (8.5-10.1); CARBON DIOXIDE LEVEL 28 MEQ/L (21-32); CHLORIDE LEVEL 104 MEQ/L (98-107); CREATININE FOR GFR 0.96 MG/DL (0.70-1.30); FREE T4 1.03 NG/DL (0.76-1.46); GLOMERULAR FILTRATION RATE > 60.0 (>60); GLUCOSE, FASTING 127 MG/DL (70-100); POTASSIUM SERUM 4.5 MEQ/L (3.5-5.1); RHEUMATOID FACTOR QUANT < 10.0 IU/ML (<15.0); SODIUM LEVEL 137 MEQ/L (136-145); TOTAL PROTEIN 7.6 GM/DL (6.4-8.2)
[2022-07-25 13:35] LABS: TOTAL 25(OH) VITAMIN D 34.5 NG/ML (30.0-100.0); VITAMIN B12 LEVEL 413 PG/ML (247-911)
[2022-07-27 07:11] LABS: FOLATE 15.4 ng/mL (>3.0)
== END ==
LOC: M LAB 11:12
PROVIDERS: ATTEND Psychiatry & Neurology Neurology
DX: R51.9 Headache, unspecified (principal); R42 Dizziness and giddiness

== ENCOUNTER → 2022-08-13 | Outpatient (CLI) | payer BC ==
[~2022-08-13] MED LIST changes: +ISOVUE-370 76% 100ML VIAL As Ordered ONE
== END ==
LOC: M RAD 15:00
PROVIDERS: ATTEND Psychiatry & Neurology Neurology
DX: R42 Dizziness and giddiness (principal); R55 Syncope and collapse
CPT/HCPCS: 70496; 70498; Q9967

== ENCOUNTER 2022-08-30 22:16 | Emergency (ER) | payer BC ==
[~2022-08-30] VITALS: Ht 182.9 cm; Wt 103.0 kg
[~2022-08-30 22:16] MED LIST changes: -ISOVUE-370 76% 100ML VIAL As Ordered ONE
[2022-08-30] MEDS ORDERED: ISOVUE-370 76% 100ML VIAL As Ordered ONE (23:35)
[2022-08-31] MEDS ORDERED: NS 1,000 ML IV SCH (00:15)
[2022-08-31 00:25] LABS: BASO # 0.1 10^3/uL (0.0-0.2); BASO % 0.3 % (0.0-1.0); EOS % 0.1 % (0.0-3.0); HEMATOCRIT 46.6 % (42.0-52.0); HEMOGLOBIN 15.5 g/dl (13.5-17.5); LYMPH # 1.3 10^3/uL (1.5-5.0); LYMPH % 6.2 % (24.0-44.0); MEAN CORPUSCULAR HEMOGLOBIN 29.1 pg (27.0-33.0); MEAN CORPUSCULAR HGB CONC 33.3 g/dl (32.0-36.5); MEAN CORPUSCULAR VOLUME 87.4 fl (80.0-96.0); MONO % 8.9 % (2.0-8.0); NEUTROPHILS # 17.2 10^3/uL (1.5-8.5); NEUTROPHILS % 83.2 % (36.0-66.0); PLATELET COUNT, AUTOMATED 282 10^3/uL (150-450); RED BLOOD COUNT 5.33 10^6/uL (4.30-6.10); WHITE BLOOD COUNT 20.7 10^3/uL (4.0-10.0)
[2022-08-31 00:37] LABS: MONO # 1.8 10^3/uL (0.0-0.8)
[2022-08-31 00:54] LABS: CALCIUM LEVEL 8.6 MG/DL (8.5-10.1); CREATININE FOR GFR 1.36 MG/DL (0.70-1.30); GLOMERULAR FILTRATION RATE 59.5 (>60)
[2022-08-31 01:04] LABS: CK-MB VALUE MASS 1.3 NG/ML (<3.6); MB/CK RELATIVE INDEX 1.25 (< OR =4)
[2022-08-31 02:00] VITALS: BP 109/57
[2022-08-31] MEDS ORDERED: VENL37.598 PO (02:36)
== END 2022-08-31 03:10 | disposition home or self-care (01) ==
LOC: M ED 22:16
DX: H81.09 Meniere's disease, unspecified ear (principal); D72.829 Elevated white blood cell count, unspecified; R00.0 Tachycardia, unspecified; R11.2 Nausea with vomiting, unspecified; F41.9 Anxiety disorder, unspecified; Z79.84 Long term (current) use of oral hypoglycemic drugs; Z79.899 Other long term (current) drug therapy
CPT/HCPCS: 70450; 70496; 70498; 71045; 80048; 82550; 82553; 84484; 85025; 85730; 93005; 93041; 94760; 96360; 96361; 99285; Q9967

== ENCOUNTER → 2022-09-02 | Outpatient (CLI) | payer BC ==
[~2022-09-02] MED LIST changes: +VENL37.598 PO
[2022-09-02 17:32] LABS: BASO % 0.5 % (0.0-1.0); EOS # 0.1 10^3/uL (0.0-0.5); EOS % 1.4 % (0.0-3.0); HEMATOCRIT 47.4 % (42.0-52.0); HEMOGLOBIN 15.5 g/dl (13.5-17.5); LYMPH % 25.5 % (24.0-44.0); MEAN CORPUSCULAR HEMOGLOBIN 29.2 pg (27.0-33.0); MEAN CORPUSCULAR HGB CONC 32.7 g/dl (32.0-36.5); MEAN CORPUSCULAR VOLUME 89.3 fl (80.0-96.0); MONO # 0.7 10^3/uL (0.0-0.8); MONO % 8.6 % (2.0-8.0); NEUTROPHILS # 4.9 10^3/uL (1.5-8.5); PLATELET COUNT, AUTOMATED 314 10^3/uL (150-450); RED BLOOD COUNT 5.31 10^6/uL (4.30-6.10); WHITE BLOOD COUNT 7.8 10^3/uL (4.0-10.0)
== END ==
LOC: M LAB 16:25
PROVIDERS: ATTEND Emergency Medicine
DX: D72.829 Elevated white blood cell count, unspecified (principal)

== ENCOUNTER → 2022-10-17 | Outpatient (CLI) | payer BC ==
[2022-10-17 10:06] LABS: BASO # 0.1 10^3/uL (0.0-0.2); BASO % 0.8 % (0.0-1.0); EOS # 0.2 10^3/uL (0.0-0.5); EOS % 2.9 % (0.0-3.0); LYMPH # 1.4 10^3/uL (1.5-5.0); LYMPH % 23.1 % (24.0-44.0); MEAN CORPUSCULAR HEMOGLOBIN 28.9 pg (27.0-33.0); MEAN CORPUSCULAR HGB CONC 32.8 g/dl (32.0-36.5); MEAN CORPUSCULAR VOLUME 88.1 fl (80.0-96.0); MONO # 0.4 10^3/uL (0.0-0.8); MONO % 7.4 % (2.0-8.0); NEUTROPHILS # 3.9 10^3/uL (1.5-8.5); NEUTROPHILS % 64.8 % (36.0-66.0); PLATELET COUNT, AUTOMATED 278 10^3/uL (150-450); WHITE BLOOD COUNT 5.9 10^3/uL (4.0-10.0)
[2022-10-17 10:09] LABS: RED BLOOD COUNT 5.78 10^6/uL (4.30-6.10)
[2022-10-17 10:10] LABS: HEMATOCRIT 51.5 % (42.0-52.0); HEMOGLOBIN 16.7 g/dl (13.5-17.5)
[2022-10-17 10:35] LABS: LIPASE 38 U/L (12-53)
[2022-10-17 10:37] LABS: ALBUMIN 4.2 G/DL (3.2-5.2); ALKALINE PHOSPHATASE 85 U/L (46-116); ALT/SGPT 26 U/L (7.0-40); AST/SGOT 16 U/L (<34); BILIRUBIN,TOTAL 0.9 MG/DL (0.3-1.2); BLOOD UREA NITROGEN 19 MG/DL (9-23); C REACTIVE PROTEIN QUANTITATIV < 0.40 MG/DL (<1.0); CALCIUM LEVEL 9.7 MG/DL (8.5-10.1); CARBON DIOXIDE LEVEL 24 MMOL/L (20-31); CHLORIDE LEVEL 105 MMOL/L (98-107); CREATININE FOR GFR 1.11 MG/DL (0.70-1.30); GLOMERULAR FILTRATION RATE > 60.0 (>60); GLUCOSE, FASTING 133 MG/DL (60-100); SODIUM LEVEL 142 MMOL/L (136-145); TOTAL PROTEIN 7.3 G/DL (5.7-8.2)
[2022-10-17 10:44] LABS: ERYTHROCYTE SEDIMENTATION RATE 2 mm/hr (0-15)
== END ==
LOC: M LAB 09:07
PROVIDERS: ATTEND Physician Assistant
DX: R10.13 Epigastric pain (principal); R11.0 Nausea

== ENCOUNTER → 2023-09-03 | Outpatient (REF) | payer OTHER ==
[~2023-09-03] MED LIST changes: +MECL-209 PO; -MECL1TAB31 PO
== END ==
LOC: M SFHCPLAZ 17:45
PROVIDERS: ATTEND Physician Assistant Medical
DX: J06.9 Acute upper respiratory infection, unspecified (principal)

== ENCOUNTER → 2024-08-30 | Outpatient (CLI) | payer OTHER, BC ==
[~2024-08-30] MED LIST changes: +DOXY-441 PO; -DOXY-443 PO
[2024-08-30 08:40] LABS: BASO # 0.1 10^3/uL (0.0-0.2); BASO % 0.8 % (0.0-1.0); EOS # 0.1 10^3/uL (0.0-0.5); EOS % 1.8 % (0.0-3.0); HEMATOCRIT 48.5 % (42.0-52.0); HEMOGLOBIN 16.3 g/dl (13.5-17.5); LYMPH # 1.5 10^3/uL (1.5-5.0); LYMPH % 22.1 % (24.0-44.0); MEAN CORPUSCULAR HEMOGLOBIN 29.4 pg (27.0-33.0); MEAN CORPUSCULAR HGB CONC 33.6 g/dl (32.0-36.5); MEAN CORPUSCULAR VOLUME 87.4 fl (80.0-96.0); MONO # 0.6 10^3/uL (0.0-0.8); MONO % 9.2 % (2.0-8.0); NEUTROPHILS # 4.3 10^3/uL (1.5-8.5); NEUTROPHILS % 64.9 % (36.0-66.0); PLATELET COUNT, AUTOMATED 249 10^3/uL (150-450); RED BLOOD COUNT 5.55 10^6/uL (4.30-6.10); WHITE BLOOD COUNT 6.7 10^3/uL (4.0-10.0)
[2024-08-30 08:58] LABS: HEMOGLOBIN A1c 7.8 % (4.0-6.0)
[2024-08-30 08:59] LABS: CREATININE, URINE 122.4 MG/DL
[2024-08-30 08:59] LABS: PSA SCREENING 0.68 NG/ML (< 4.00)
[2024-08-30 09:00] LABS: MAU/CREAT RATIO 2.4 MCG/MG (0.0-30.0)
[2024-08-30 09:03] LABS: TOTAL 25(OH) VITAMIN D 11.8 NG/ML (20.0-100.0)
[2024-08-30 09:04] LABS: C REACTIVE PROTEIN QUANTITATIV < 0.40 MG/DL (<1.0); THYROID STIMULATING HORMONE 3.853 uIU/ML (0.55-4.78); VITAMIN B12 LEVEL 420 PG/ML (211-911)
[2024-08-30 09:05] LABS: ALBUMIN 3.9 G/DL (3.2-5.2); ALKALINE PHOSPHATASE 113 U/L (40-129); ALT/SGPT 29 U/L (7.0-40); AST/SGOT 12 U/L (<34); BILIRUBIN,TOTAL 0.6 MG/DL (0.3-1.2); BLOOD UREA NITROGEN 18 MG/DL (9-23); CALCIUM LEVEL 8.6 MG/DL (8.5-10.1); CARBON DIOXIDE LEVEL 23 MMOL/L (20-31); CHLORIDE LEVEL 109 MMOL/L (98-107); CHOLESTEROL LEVEL 143 MG/DL (<200); CHOLESTEROL RISK RATIO 3.34 (<5); CREATININE FOR GFR 1.07 MG/DL (0.70-1.30); FREE T4 1.19 NG/DL (0.89-1.76); GLOMERULAR FILTRATION RATE > 60.0 (>56); GLUCOSE, FASTING 186 MG/DL (60-100); HDL CHOLESTEROL 42.8 MG/DL (>40); NON-HDL-C 100.2 MG/DL; POTASSIUM SERUM 4.2 MMOL/L (3.5-5.1); SODIUM LEVEL 139 MMOL/L (136-145); TOTAL PROTEIN 6.8 G/DL (5.7-8.2); TRIGLYCERIDES LEVEL 196 MG/DL (<150)
== END ==
LOC: M LAB 07:57
PROVIDERS: ATTEND Internal Medicine Hematology
DX: E11.9 Type 2 diabetes mellitus without complications (principal); Z12.5 Encounter for screening for malignant neoplasm of prostate; E78.00 Pure hypercholesterolemia, unspecified; H81.02 Meniere's disease, left ear
CPT/HCPCS: 36415; 80053; 80061; 82043; 82306; 82607; 83036; 83525; 84439; 84443; 85025; 86140; G0103

== ENCOUNTER 2025-01-03 18:41 | Emergency (ER) | payer BC, OTHER ==
[~2025-01-03] VITALS: Ht 182.9 cm; Wt 108.4 kg
[2025-01-03 19:41] LABS: APPEARANCE, URINE CLEAR (CLEAR); BACTERIA, URINE AUTO NEGATIVE (NEGATIVE); BILIRUBIN, URINE AUTO NEGATIVE (NEGATIVE); BLOOD, URINE BLOOD 2+ (NEGATIVE); COLOR, URINE YELLOW (YELLOW); GLUCOSE, URINE (UA) AUTO NEGATIVE (NEGATIVE); KETONE, URINE AUTO NEGATIVE (NEGATIVE); LEUKOCYTE ESTERASE, URINE AUTO NEGATIVE (NEGATIVE); MUCUS, URINE SMALL (NEGATIVE); NITRITE, URINE AUTO NEGATIVE (NEGATIVE); PROTEIN, URINE AUTO NEGATIVE (NEGATIVE); RBC, URINE AUTO 50 /HPF (0-3); SPECIFIC GRAVITY URINE AUTO 1.018 (1.002-1.035); SQUAMOUS EPITHELIAL CELL UR AU 0 /HPF (0-6); UROBILINOGEN, URINE AUTO 0.2 mg/dL (0.0-2.0); WBC, URINE AUTO 1 /HPF (0-3)
[2025-01-03 20:05] LABS: BASO # 0.1 10^3/uL (0.0-0.2); BASO % 0.7 % (0.0-1.0); EOS # 0.1 10^3/uL (0.0-0.5); EOS % 1.3 % (0.0-3.0); HEMATOCRIT 47.8 % (42.0-52.0); HEMOGLOBIN 15.8 g/dl (13.5-17.5); LYMPH % 25.8 % (24.0-44.0); MEAN CORPUSCULAR HGB CONC 33.1 g/dl (32.0-36.5); MEAN CORPUSCULAR VOLUME 87.7 fl (80.0-96.0); MONO # 0.7 10^3/uL (0.0-0.8); MONO % 8.7 % (2.0-8.0); NEUTROPHILS # 4.8 10^3/uL (1.5-8.5); NEUTROPHILS % 62.6 % (36.0-66.0); PLATELET COUNT, AUTOMATED 279 10^3/uL (150-450); RED BLOOD COUNT 5.45 10^6/uL (4.30-6.10); WHITE BLOOD COUNT 7.6 10^3/uL (4.0-10.0)
[2025-01-03 20:29] LABS: LIPASE 33 U/L (12-53)
[2025-01-03 21:26] LABS: ALKALINE PHOSPHATASE 97 U/L (40-129); ALT/SGPT 29 U/L (7.0-40); AST/SGOT 17 U/L (<34); BILIRUBIN,DIRECT 0.2 MG/DL (<0.4); BILIRUBIN,TOTAL 0.6 MG/DL (0.3-1.2); BLOOD UREA NITROGEN 15 MG/DL (9-23); CALCIUM LEVEL 9.3 MG/DL (8.5-10.1); CARBON DIOXIDE LEVEL 27 MMOL/L (20-31); CHLORIDE LEVEL 109 MMOL/L (98-107); CREATININE FOR GFR 1.21 MG/DL (0.70-1.30); GLOMERULAR FILTRATION RATE > 60.0 (>56); GLUCOSE, FASTING 111 MG/DL (60-100); POTASSIUM SERUM 4.4 MMOL/L (3.5-5.1); SODIUM LEVEL 145 MMOL/L (136-145); TOTAL PROTEIN 7.3 G/DL (5.7-8.2)
[2025-01-03 21:36] LABS: ALBUMIN 4.2 G/DL (3.2-5.2)
[2025-01-03] MEDS ORDERED: FLOM0.4C39 PO (22:03)
[2025-01-03] MEDS ORDERED: KETO10TAB PO (22:03)
[2025-01-03] MEDS ORDERED: ONDA-282 PO (22:03)
[2025-01-03] MEDS: TAMSULOSIN 0.4 MG CAP PO ONE (22:29)
[2025-01-03] MEDS: ONDANSETRON 4MG 2ML VIAL IV ONE (22:29)
[2025-01-03] MEDS: KETOROLAC 30 MG/ML 1ML VIAL IV ONE (22:30)
[2025-01-04] VITALS: BP 119/75
[2025-01-04 00:10] VITALS: TEMP 97.7; O2SAT 95
== END 2025-01-04 00:29 | disposition home or self-care (01) ==
LOC: M ED 18:41
DX: N13.2 Hydronephrosis with renal and ureteral calculous obstruction (principal); K40.90 Unilateral inguinal hernia, without obstruction or gangrene, not specified as recurrent; I10 Essential (primary) hypertension; E11.9 Type 2 diabetes mellitus without complications; Z87.442 Personal history of urinary calculi; E78.5 Hyperlipidemia, unspecified; F41.9 Anxiety disorder, unspecified; Z79.899 Other long term (current) drug therapy
CPT/HCPCS: 74176; 80048; 80076; 81001; 83690; 85025; 96374; 96375; 99284; J1885; J2405